=== PATIENT | female | born 1950 | race Caucasian/White ===

== ENCOUNTER 2020-10-03 09:38 | Inpatient (IN) | payer OTHER, BC ==
[2020-10-03 10:10] LABS: EOS % 2.8 % (0-4.5); HEMATOCRIT 39.7 % (32.4-45.2); HEMOGLOBIN 13.9 GM/dL (10.7-15.3); LYMPH % 37.4 % (8-40); MCHC 35.1 g/dl (32.0-36.0); MEAN CELL VOLUME 91.3 fl (80-96); MEAN PLT VOLUME 7.5 fl (7.5-11.1); MONO % 7.2 % (3.8-10.2); NEUT % 51.6 % (42.8-82.8); PLATELET COUNT 286 10^3/uL (134-434); RBC 4.35 M/mm3 (3.60-5.2); RDW 13.8 % (11.6-15.6); WHITE BLOOD COUNT 5.4 K/mm3 (4.0-10.0)
[2020-10-03 10:27] LABS: CHLORIDE 111 mmol/L (98-107); SODIUM 136 mmol/L (136-145)
[2020-10-03 10:30] LABS: ANION GAP 11 MMOL/L (8-16); BLOOD UREA NITROGEN 22.7 mg/dL (7-18); CALCIUM 9.2 mg/dL (8.5-10.1); CO2 15 mmol/L (21-32); MAGNESIUM 2.1 mg/dL (1.8-2.4)
[2020-10-03 10:31] LABS: GLUCOSE,RANDOM 140 mg/dL (74-106)
[2020-10-03 10:33] LABS: SGPT/ALT 58 U/L (13-61)
[2020-10-03 10:34] LABS: CREATININE 0.8 mg/dL (0.55-1.3); PHOSPHOROUS 4.2 mg/dL (2.5-4.9); SGOT/AST 28 U/L (15-37)
[2020-10-03 10:35] LABS: BILIRUBIN,TOTAL 0.4 mg/dL (0.2-1); TOT PROT 7.4 g/dl (6.4-8.2)
[2020-10-03 10:36] LABS: ALK PHOS 120 U/L (45-117)
[2020-10-03 10:42] LABS: LACTIC ACID 3.7 mmol/L (0.4-2.0)
[2020-10-03 11:58] VITALS: BMI 27.4
[2020-10-03] MEDS ORDERED: SODIUM CHLORIDE 1,000 ML IV STA (12:17)
[2020-10-03] MEDS ORDERED: ACETAMINOPHEN 325 MG TABLET (FP) PO ONE ×2 (15:27→20:07)
[2020-10-03] MEDS ORDERED: ACETAMINOPHEN 325 MG TABLET (FP) ONE ×2 (15:37→20:08)
[2020-10-03 17:21] LABS: URINE APPEARANCE CLEAR; URINE BILIRUBIN NEGATIVE (NEGATIVE); URINE COLOR YELLOW; URINE GLUCOSE (UA) NEGATIVE (NEGATIVE); URINE KETONE NEGATIVE (NEGATIVE); URINE LEUK ESTERASE NEGATIVE (NEGATIVE); URINE NITRITE NEGATIVE (NEGATIVE); URINE PROTEIN NEGATIVE (NEGATIVE); URINE UROBILINOGEN 0.2 mg/dL (0.2-1.0)
[2020-10-04] MEDS ORDERED: ACETAMINOPHEN 325 MG TABLET (FP) PO PRN ×2 (01:28→07:50)
[2020-10-04] MEDS ORDERED: ACETAMINOPHEN 500 MG TABLET (FP) PO ONE (03:00)
[2020-10-04] MEDS ORDERED: ACETAMINOPHEN 500 MG TABLET (FP) ONE (03:05)
[2020-10-04 06:40] LABS: BASO % 0.6 % (0-2.0); EOS % 2.8 % (0-4.5); HEMATOCRIT 37.5 % (32.4-45.2); HEMOGLOBIN 12.9 GM/dL (10.7-15.3); LYMPH % 28.7 % (8-40); MCH 31.6 pg (25.7-33.7); MCHC 34.5 g/dl (32.0-36.0); MEAN CELL VOLUME 91.6 fl (80-96); MEAN PLT VOLUME 7.5 fl (7.5-11.1); MONO % 7.6 % (3.8-10.2); NEUT % 60.3 % (42.8-82.8); PLATELET COUNT 213 10^3/uL (134-434); RBC 4.09 M/mm3 (3.60-5.2); RDW 13.8 % (11.6-15.6); WHITE BLOOD COUNT 4.4 K/mm3 (4.0-10.0)
[2020-10-04 07:05] LABS: ALBUMIN 3.6 g/dl (3.4-5.0); CALCIUM 9.2 mg/dL (8.5-10.1); MAGNESIUM 2.1 mg/dL (1.8-2.4)
[2020-10-04 07:06] LABS: BLOOD UREA NITROGEN 16.4 mg/dL (7-18)
[2020-10-04 07:08] LABS: CREATININE 0.6 mg/dL (0.55-1.3)
[2020-10-04 07:09] LABS: PHOSPHOROUS 3.9 mg/dL (2.5-4.9)
[2020-10-04 07:10] LABS: TOT PROT 6.6 g/dl (6.4-8.2)
[2020-10-04 07:11] LABS: BILIRUBIN,TOTAL 0.4 mg/dL (0.2-1)
[2020-10-04] MEDS ORDERED: ACETAMINOPHEN 325 MG TABLET (FP) ONE ×2 (07:28→07:29)
[2020-10-04 07:49] VITALS: TEMP 98.1
[2020-10-04] MEDS ORDERED: ONDANSETRON 4 MG/2 ML VIAL IVPUSH ONE (07:51)
[2020-10-04] MEDS ORDERED: ATENOLOL 50 MG TABLET (FP) PO SCH (10:00)
[2020-10-04] MEDS ORDERED: ENOXAPARIN NA (PORCINE) 40 MG/0.4 ML DISP.SYRIN SQ SCH (10:00)
[2020-10-04] MEDS ORDERED: ATENOLOL 25 MG TABLET (FP) ONE (11:34)
[2020-10-04] MEDS ORDERED: ENOXAPARIN NA (PORCINE) 40 MG/0.4 ML DISP.SYRIN SQ ONE (11:35)
[2020-10-04 12:51] VITALS: BP 127/71; PULSE 78
== END 2020-10-04 14:29 | disposition home or self-care (01) | DRG 312 ==
LOC: JER 09:38 → JERBED 14:09 → OBSVTOIN 14:55
PROVIDERS: ADMIT Internal Medicine; ATTEND Internal Medicine
DX: R55 Syncope and collapse (principal); E87.2 Acidosis; G43.909 Migraine, unspecified, not intractable, without status migrainosus; I10 Essential (primary) hypertension; E78.00 Pure hypercholesterolemia, unspecified; E05.90 Thyrotoxicosis, unspecified without thyrotoxic crisis or storm; M54.12 Radiculopathy, cervical region; J44.9 Chronic obstructive pulmonary disease, unspecified; E86.0 Dehydration
CPT/HCPCS: 36415; 70450-TC; 71045-TC-FY; 71250-TC; 72125-TC; 78014-TC; 80053; 80061; 81003; 82550; 82962; 83605; 83735; 84100; 84436; 84443; 84484; 85025; 93005; 93010; 99285-25; A9516; C9803; G0378; U0003; U0005

== ENCOUNTER 2020-10-10 10:31 | Inpatient (IN) | payer OTHER, BC ==
[2020-10-10 13:18] LABS: INR 1.08 (0.82-1.09)
[2020-10-10 13:26] LABS: ACTIVATED PTT 25.8 SECONDS (25.2-36.5)
[2020-10-10 13:27] LABS: BASO % 4.1 % (0-2.0); EOS % 2.7 % (0-4.5); HEMATOCRIT 39.4 % (32.4-45.2); HEMOGLOBIN 13.1 GM/dl (10.7-15.3); LYMPH % 28.8 % (8-40); MCH 30.7 pg (25.7-33.7); MCHC 33.1 g/dl (32.0-36.0); MEAN CELL VOLUME 92.8 fl (80-96); MEAN PLT VOLUME 7.9 fl (7.5-11.1); MONO % 4.7 % (3.8-10.2); NEUT % 59.7 % (42.8-82.8); PLATELET COUNT 181 10^3/uL (134-434); RBC 4.25 M/mm3 (3.60-5.2); RDW 13.6 % (11.6-15.6); WHITE BLOOD COUNT 3.7 K/mm3 (4.0-10.8)
[2020-10-10 13:28] LABS: ALK PHOS 96 U/L (45-117); ANION GAP 8 MMOL/L (8-16); BILIRUBIN,TOTAL 0.6 mg/dl (0.2-1); CALCIUM 9.4 mg/dl (8.5-10); CHLORIDE 111 mmol/L (98-107); CO2 18 mmol/L (21-32); CREATININE 0.6 mg/dl (0.55-1.3); GLUCOSE,RANDOM 91 mg/dl (74-106); MAGNESIUM 1.8 mg/dL (1.8-2.4); SGOT/AST 46 U/L (15-37); SGPT/ALT 129 U/L (13-61); SODIUM 137 mmol/L (136-145); TOT PROT 6.8 g/dl (6.4-8.2)
[2020-10-10 14:06] LABS: N-TERMINAL BNP 5472.4 pg/ml (5-125)
[2020-10-10] MEDS ORDERED: MAGNESIUM SULF 50% (8.12 MEQ/2 ML-1 GM VIAL) IVPB ONE (15:34)
[2020-10-10] MEDS ORDERED: MAGNESIUM 1GM/D5W - 1 GM/100 ML IVPB IVPB ONE (16:39)
[2020-10-10 18:16] VITALS: BMI 27.3
[2020-10-10] MEDS: METHIMAZOLE 5 MG TABLET PO SCH (21:16)
[2020-10-11 08:10] LABS: BASO % 1.3 % (0-2.0); EOS % 4.6 % (0-4.5); HEMATOCRIT 38.7 % (32.4-45.2); HEMOGLOBIN 12.9 GM/dl (10.7-15.3); LYMPH % 30.5 % (8-40); MCH 30.5 pg (25.7-33.7); MCHC 33.4 g/dl (32.0-36.0); MEAN CELL VOLUME 91.4 fl (80-96); MEAN PLT VOLUME 7.7 fl (7.5-11.1); MONO % 10.4 % (3.8-10.2); NEUT % 53.2 % (42.8-82.8); PLATELET COUNT 180 10^3/uL (134-434); RBC 4.24 M/mm3 (3.60-5.2); RDW 13.2 % (11.6-15.6); WHITE BLOOD COUNT 3.3 K/mm3 (4.0-10.8)
[2020-10-11 08:19] LABS: ALBUMIN 3.8 g/dl (3.4-5.0); BILIRUBIN,DIRECT 0.1 mg/dL (0.0-0.2); BILIRUBIN,TOTAL 0.7 mg/dl (0.2-1); CALCIUM 9.3 mg/dl (8.5-10); CREATININE 0.6 mg/dl (0.55-1.3); TOT PROT 6.3 g/dl (6.4-8.2)
[2020-10-11] MEDS: ATENOLOL 50 MG TABLET (FP) PO SCH (12:36)
[2020-10-11] MEDS: ROSUVASTATIN CA 5 MG TABLET (FP) PO SCH (12:37)
[2020-10-11] MEDS: METHIMAZOLE 5 MG TABLET PO SCH ×2 (12:37→21:26)
[2020-10-11] MEDS: ENOXAPARIN NA (PORCINE) 40 MG/0.4 ML DISP.SYRIN SQ SCH (12:37)
[2020-10-11] MEDS ORDERED: FUROSEMIDE 40 MG/4 ML INJECTABLE VIAL IVPUSH ONE (14:30)
[2020-10-12 09:50] VITALS: BP 104/80; PULSE 70; TEMP 97.8
[2020-10-12] MEDS: ENOXAPARIN NA (PORCINE) 40 MG/0.4 ML DISP.SYRIN SQ SCH (09:51)
[2020-10-12] MEDS: METHIMAZOLE 5 MG TABLET PO SCH (09:51)
[2020-10-12] MEDS: ATENOLOL 50 MG TABLET (FP) PO SCH (09:51)
[2020-10-12] MEDS: ROSUVASTATIN CA 5 MG TABLET (FP) PO SCH (09:51)
== END 2020-10-12 12:54 | disposition short-term general hospital (02) | DRG 644 ==
LOC: FER 10:31 → INTOOBSV 14:19 → FM/S 14:19 → OBSVTOIN 10-11 21:20
PROVIDERS: ADMIT Internal Medicine; ATTEND Nurse Practitioner Acute Care
DX: E05.90 Thyrotoxicosis, unspecified without thyrotoxic crisis or storm (principal); I50.20 Unspecified systolic (congestive) heart failure; I27.20 Pulmonary hypertension, unspecified; R55 Syncope and collapse; J44.9 Chronic obstructive pulmonary disease, unspecified; I10 Essential (primary) hypertension; E78.5 Hyperlipidemia, unspecified
CPT/HCPCS: 36415; 70450-TC; 70551-TC; 71046-TC-FY; 71275-TC; 72125-TC; 80048; 80053; 80076; 81003; 82550; 83036; 83735; 83880; 84439; 84443; 84481; 84484; 85025; 85610; 85730; 93005; 93306-TC; 93880-TC; 99285-25; C9803; G0378; Q9967; U0003; U0005

== ENCOUNTER 2020-12-25 09:41 | Inpatient (IN) | payer OTHER, BC ==
[2020-12-25 10:07] VITALS: BMI 26.6
[2020-12-25 10:18] LABS: BASO % 2.5 % (0-2.0); EOS % 2.5 % (0-4.5); HEMATOCRIT 23.6 % (32.4-45.2); HEMOGLOBIN 7.8 GM/dl (10.7-15.3); LYMPH % 16.1 % (8-40); MCHC 33.2 g/dl (32.0-36.0); MEAN CELL VOLUME 96.2 fl (80-96); MEAN PLT VOLUME 6.6 fl (7.5-11.1); MONO % 3.6 % (3.8-10.2); NEUT % 75.3 % (42.8-82.8); PLATELET COUNT 321 10^3/uL (134-434); RBC 2.45 M/mm3 (3.60-5.2); RDW 15.7 % (11.6-15.6)
[2020-12-25 10:28] LABS: ACTIVATED PTT 30.9 SECONDS (25.2-36.5)
[2020-12-25 10:31] LABS: ALBUMIN 3.5 g/dl (3.4-5.0); ALK PHOS 75 U/L (45-117); ANION GAP 9 MMOL/L (8-16); BILIRUBIN,TOTAL 0.8 mg/dl (0.2-1); CHLORIDE 111 mmol/L (98-107); CO2 16 mmol/L (21-32); CREATININE 0.7 mg/dl (0.55-1.3); GLUCOSE,RANDOM 118 mg/dl (74-106); SGOT/AST 26 U/L (15-37); SGPT/ALT 18 U/L (13-61); SODIUM 136 mmol/L (136-145)
[2020-12-25 10:33] LABS: INR 2.06 (0.82-1.09); PROTHROMBIN TIME (PATIENT) 22.9 SEC (10.2-13.0)
[2020-12-25] MEDS ORDERED: SODIUM CHLORIDE 0.9% 500 ML INFUS.BAG IV ONE ×2 (11:07→22:12)
[2020-12-25 12:01] LABS: N-TERMINAL BNP 3704.8 pg/ml (5-125)
[2020-12-25] MEDS ORDERED: DEXAMETHASONE SOD PHOSPHATE 10 MG/1 ML VIAL IVPUSH ONE (13:39)
[2020-12-25] MEDS ORDERED: DEXAMETHASONE SOD PHOSPHATE 10 MG/1 ML VIAL ONE (14:05)
[2020-12-25] MEDS ORDERED: FUROSEMIDE 40 MG/4 ML INJECTABLE VIAL IVPUSH ONE (16:14)
[2020-12-25 18:33] LABS: ARTERIAL BLD GAS O2 SATURATION 96.7 % (95-98); ARTERIAL BLOOD GAS BASE EXCESS -9.5 mmol/L (-2-2); ARTERIAL BLOOD GAS PO2 89.1 mmHg (80-100); ARTERIAL BLOOD GAS pH 7.362 (7.350-7.450)
[2020-12-25 18:35] LABS: ALLENS TEST POSITIVE
[2020-12-25] MEDS ORDERED: ATENOLOL 50 MG TABLET (FP) PO SCH (22:00)
[2020-12-25] MEDS ORDERED: RIOCIGUAT 1 MG PO SCH (22:00)
[2020-12-25] MEDS ORDERED: SODIUM CHLORIDE 500 ML IV STA (22:13)
[2020-12-25] MEDS ORDERED: SODIUM CHLORIDE 1,000 ML IV SCH ×2 (22:15→23:45)
[2020-12-25] MEDS: MUPIROCIN 2% TOPICAL OINTMENT FOR DECOLONIZATION NS SCH (22:45)
[2020-12-25] MEDS: CHLORHEXIDINE GLUCONATE 4% CLEANSER FOR DECOLONIZATION TP SCH (22:46)
[2020-12-25] MEDS: METHIMAZOLE 5 MG TABLET PO SCH (22:57)
[2020-12-25] MEDS ORDERED: guaiFENesin 200 MG/10 ML 10 ML UNIT-DOSE CUPS PO ONE (23:56)
[2020-12-26] MEDS ORDERED: SODIUM CHLORIDE 500 ML IV STA (00:08)
[2020-12-26 06:14] LABS: BASO % 0.6 % (0-2.0); EOS % 0.1 % (0-4.5); HEMATOCRIT 22.3 % (32.4-45.2); HEMOGLOBIN 7.7 GM/dL (10.7-15.3); MCH 32.8 pg (25.7-33.7); MCHC 34.4 g/dl (32.0-36.0); MEAN CELL VOLUME 95.4 fl (80-96); MEAN PLT VOLUME 7.3 fl (7.5-11.1); MONO % 4.5 % (3.8-10.2); NEUT % 82.8 % (42.8-82.8); PLATELET COUNT 260 10^3/uL (134-434); RBC 2.34 M/mm3 (3.60-5.2); RDW 16.8 % (11.6-15.6); WHITE BLOOD COUNT 5.7 K/mm3 (4.0-10.0)
[2020-12-26 07:02] LABS: BASO % 0.2 % (0-2.0); EOS % 0.1 % (0-4.5); HEMATOCRIT 22.6 % (32.4-45.2); HEMOGLOBIN 7.9 GM/dL (10.7-15.3); LYMPH % 12.9 % (8-40); MCH 32.9 pg (25.7-33.7); MCHC 34.7 g/dl (32.0-36.0); MEAN CELL VOLUME 94.7 fl (80-96); MEAN PLT VOLUME 7.1 fl (7.5-11.1); MONO % 4.6 % (3.8-10.2); NEUT % 82.2 % (42.8-82.8); PLATELET COUNT 249 10^3/uL (134-434); RBC 2.39 M/mm3 (3.60-5.2); RDW 17.1 % (11.6-15.6); WHITE BLOOD COUNT 6.1 K/mm3 (4.0-10.0)
[2020-12-26 07:18] LABS: PHOSPHOROUS 3.9 mg/dL (2.5-4.9)
[2020-12-26 08:28] LABS: ALBUMIN 2.9 g/dl (3.4-5.0); BILIRUBIN,TOTAL 0.8 mg/dL (0.2-1); BLOOD UREA NITROGEN 19.4 mg/dL (7-18); CALCIUM 8.1 mg/dL (8.5-10.1); CREATININE 0.6 mg/dL (0.55-1.3); MAGNESIUM 2.2 mg/dL (1.8-2.4); TOT PROT 5.5 g/dl (6.4-8.2)
[2020-12-26 09:30] LABS: ACTIVATED PTT 26.3 SECONDS (25.2-36.5); INR 1.31 (0.83-1.09); PROTHROMBIN TIME (PATIENT) 15.4 SEC (9.7-13.0)
[2020-12-26] MEDS ORDERED: PT OWN MED DRAWER 7, Y5N ONE ×2 (09:32→10:04)
[2020-12-26] MEDS: ACETAMINOPHEN/CAFFEINE/BUTALBITAL 1 TAB PO PRN ×3 (09:39→21:55)
[2020-12-26] MEDS: PANTOPRAZOLE SODIUM 40 MG VIAL IVPUSH SCH ×2 (09:39→21:51)
[2020-12-26] MEDS: POLYETHYLENE GLYCOL (HEALTHYLAX) 3350 17 GM PACKET PO SCH (09:40)
[2020-12-26] MEDS: SPIRONOLACTONE 25 MG TABLET PO SCH (09:40)
[2020-12-26] MEDS: MUPIROCIN 2% TOPICAL OINTMENT FOR DECOLONIZATION NS SCH ×2 (09:40→21:51)
[2020-12-26] MEDS ORDERED: MACITENTAN 10 MG PO SCH (10:00)
[2020-12-26] MEDS: METHIMAZOLE 5 MG TABLET PO SCH ×2 (11:26→21:51)
[2020-12-26] MEDS: DOPAMINE 400 MG/D5W - 400,000 MCG/250 ML INFUS.BAG IVPB SCH (11:30)
[2020-12-26] MEDS ORDERED: FUROSEMIDE 40 MG/4 ML INJECTABLE VIAL IVPUSH ONE (14:45)
[2020-12-26 18:29] LABS: URINE APPEARANCE CLEAR; URINE BILIRUBIN NEGATIVE (NEGATIVE); URINE COLOR YELLOW; URINE GLUCOSE (UA) NEGATIVE (NEGATIVE); URINE KETONE NEGATIVE (NEGATIVE); URINE LEUK ESTERASE NEGATIVE (NEGATIVE); URINE NITRITE NEGATIVE (NEGATIVE); URINE PROTEIN NEGATIVE (NEGATIVE); URINE UROBILINOGEN 0.2 mg/dL (0.2-1.0)
[2020-12-26] MEDS: ROSUVASTATIN CA 5 MG TABLET (FP) PO SCH (21:51)
[2020-12-26] MEDS: CHLORHEXIDINE GLUCONATE 4% CLEANSER FOR DECOLONIZATION TP SCH (21:51)
[2020-12-27] MEDS: DOPAMINE 400 MG/D5W - 400,000 MCG/250 ML INFUS.BAG IVPB SCH ×2 (01:08→19:24)
[2020-12-27] MEDS ORDERED: ACETAMINOPHEN 325 MG TABLET (FP) PO ONE ×2 (05:42)
[2020-12-27] MEDS ORDERED: guaiFENesin/CODEINE 10 ML UNIT-DOSE CUPS PO ONE ×2 (05:44→15:01)
[2020-12-27 07:03] LABS: BASO % 0.2 % (0-2.0); EOS % 1.7 % (0-4.5); HEMATOCRIT 25.8 % (32.4-45.2); HEMOGLOBIN 8.9 GM/dL (10.7-15.3); LYMPH % 10.6 % (8-40); MCH 32.3 pg (25.7-33.7); MCHC 34.7 g/dl (32.0-36.0); MEAN CELL VOLUME 93.3 fl (80-96); MEAN PLT VOLUME 6.9 fl (7.5-11.1); MONO % 3.9 % (3.8-10.2); NEUT % 83.6 % (42.8-82.8); PLATELET COUNT 298 10^3/uL (134-434); RBC 2.76 M/mm3 (3.60-5.2); RDW 16.5 % (11.6-15.6); WHITE BLOOD COUNT 7.1 K/mm3 (4.0-10.0)
[2020-12-27 07:23] LABS: CALCIUM 8.6 mg/dL (8.5-10.1)
[2020-12-27 07:24] LABS: ALBUMIN 3.2 g/dl (3.4-5.0); BLOOD UREA NITROGEN 14.7 mg/dL (7-18); MAGNESIUM 2.2 mg/dL (1.8-2.4)
[2020-12-27 07:27] LABS: CREATININE 0.6 mg/dL (0.55-1.3); PHOSPHOROUS 3.2 mg/dL (2.5-4.9)
[2020-12-27 07:29] LABS: TOT PROT 6.2 g/dl (6.4-8.2)
[2020-12-27] MEDS ORDERED: PT OWN MED DRAWER 7, Y5N ONE ×3 (10:38→21:41)
[2020-12-27] MEDS: MUPIROCIN 2% TOPICAL OINTMENT FOR DECOLONIZATION NS SCH ×2 (10:44→21:45)
[2020-12-27] MEDS: POLYETHYLENE GLYCOL (HEALTHYLAX) 3350 17 GM PACKET PO SCH (10:44)
[2020-12-27] MEDS: PANTOPRAZOLE SODIUM 40 MG VIAL IVPUSH SCH ×2 (10:44→21:44)
[2020-12-27] MEDS: APIXABAN 5 MG TABLET PO SCH ×2 (10:44→21:44)
[2020-12-27] MEDS: SPIRONOLACTONE 25 MG TABLET PO SCH (10:44)
[2020-12-27] MEDS: METHIMAZOLE 5 MG TABLET PO SCH ×2 (12:00→21:45)
[2020-12-27] MEDS ORDERED: guaiFENesin 200 MG/10 ML 10 ML UNIT-DOSE CUPS PO ONE (20:17)
[2020-12-27] MEDS: ROSUVASTATIN CA 5 MG TABLET (FP) PO SCH (21:44)
[2020-12-27] MEDS: CHLORHEXIDINE GLUCONATE 4% CLEANSER FOR DECOLONIZATION TP SCH (21:44)
[2020-12-28] MEDS: guaiFENesin 200 MG/10 ML 10 ML UNIT-DOSE CUPS PO PRN ×3 (01:28→17:24)
[2020-12-28] MEDS: ACETAMINOPHEN 325 MG TABLET (FP) PO PRN ×2 (01:28→10:08)
[2020-12-28] MEDS: DOPAMINE 400 MG/D5W - 400,000 MCG/250 ML INFUS.BAG IVPB SCH ×4 (01:39→23:30)
[2020-12-28] MEDS: FUROSEMIDE 40 MG/4 ML INJECTABLE VIAL IVPUSH SCH ×2 (05:48→14:42)
[2020-12-28] MEDS: ACETAMINOPHEN/CAFFEINE/BUTALBITAL 1 TAB PO PRN ×2 (06:48→21:01)
[2020-12-28 07:00] LABS: BASO % 0.3 % (0-2.0); EOS % 2.2 % (0-4.5); HEMATOCRIT 26.5 % (32.4-45.2); HEMOGLOBIN 9.2 GM/dL (10.7-15.3); LYMPH % 11.3 % (8-40); MCH 32.4 pg (25.7-33.7); MCHC 34.9 g/dl (32.0-36.0); MEAN PLT VOLUME 6.8 fl (7.5-11.1); MONO % 2.9 % (3.8-10.2); NEUT % 83.3 % (42.8-82.8); PLATELET COUNT 304 10^3/uL (134-434); RBC 2.85 M/mm3 (3.60-5.2); RDW 16.8 % (11.6-15.6); WHITE BLOOD COUNT 7.1 K/mm3 (4.0-10.0)
[2020-12-28 07:28] LABS: BLOOD UREA NITROGEN 11.6 mg/dL (7-18); CALCIUM 8.5 mg/dL (8.5-10.1)
[2020-12-28 07:29] LABS: ALBUMIN 3.2 g/dl (3.4-5.0); MAGNESIUM 2.3 mg/dL (1.8-2.4)
[2020-12-28 07:31] LABS: CREATININE 0.6 mg/dL (0.55-1.3); PHOSPHOROUS 3.3 mg/dL (2.5-4.9)
[2020-12-28 07:32] LABS: BILIRUBIN,TOTAL 1.2 mg/dL (0.2-1); TOT PROT 6.5 g/dl (6.4-8.2)
[2020-12-28] MEDS ORDERED: PT OWN MED DRAWER 7, Y5N ONE ×3 (09:59→20:57)
[2020-12-28] MEDS: PANTOPRAZOLE SODIUM 40 MG VIAL IVPUSH SCH ×2 (10:04→21:00)
[2020-12-28] MEDS: SPIRONOLACTONE 25 MG TABLET PO SCH (10:04)
[2020-12-28] MEDS: APIXABAN 5 MG TABLET PO SCH ×2 (10:04→21:00)
[2020-12-28] MEDS: POLYETHYLENE GLYCOL (HEALTHYLAX) 3350 17 GM PACKET PO SCH (10:13)
[2020-12-28] MEDS: KCL 10 MEQ IVPB 10 MEQ/100 ML INFUS.BAG IVPB SCH ×2 (10:28→12:42)
[2020-12-28] MEDS ORDERED: POTASSIUM CHLORIDE ORAL LIQUID 20 MEQ/15 ML PO ONE (10:45)
[2020-12-28] MEDS: METHIMAZOLE 5 MG TABLET PO SCH ×2 (11:42→21:00)
[2020-12-28] MEDS: MUPIROCIN 2% TOPICAL OINTMENT FOR DECOLONIZATION NS SCH ×2 (11:43→22:12)
[2020-12-28 22:06] VITALS: TEMP 99.7
[2020-12-28] MEDS: CHLORHEXIDINE GLUCONATE 4% CLEANSER FOR DECOLONIZATION TP SCH (22:08)
[2020-12-28] MEDS: ROSUVASTATIN CA 5 MG TABLET (FP) PO SCH (22:08)
[2020-12-28 23:30] VITALS: BP 112/60; PULSE 95
== END 2020-12-28 23:35 | disposition short-term general hospital (02) | DRG 314 ==
LOC: FER 09:41 → JICU 13:30
PROVIDERS: ADMIT Internal Medicine; ATTEND Internal Medicine Pulmonary Disease
PROC: 30233N1 Transfusion of Nonautologous Red Blood Cells into Peripheral Vein, Percutaneous Approach (ICD-10-PCS; principal; 2020-12-25)
DX: I27.20 Pulmonary hypertension, unspecified (principal); J96.01 Acute respiratory failure with hypoxia; I50.22 Chronic systolic (congestive) heart failure; E87.3 Alkalosis; K92.2 Gastrointestinal hemorrhage, unspecified; I11.0 Hypertensive heart disease with heart failure; E03.9 Hypothyroidism, unspecified; G43.909 Migraine, unspecified, not intractable, without status migrainosus; E05.90 Thyrotoxicosis, unspecified without thyrotoxic crisis or storm; E78.5 Hyperlipidemia, unspecified; I10 Essential (primary) hypertension; I50.810 Right heart failure, unspecified; I27.24 Chronic thromboembolic pulmonary hypertension; D64.9 Anemia, unspecified
CPT/HCPCS: 36415; 36430; 36511; 36600; 71045-TC-FY; 71275-TC; 80053; 81003; 82272; 82550; 82728; 82803; 83540; 83550; 83615; 83735; 83880; 84100; 84439; 84443; 84466; 84484; 85025; 85045; 85379; 85610; 85730; 86140; 86850; 86900; 86901; 86922; 93005; 93010; 99285-25; C9803; J1100; P9038; P9058; Q9967; U0003; U0005

== ENCOUNTER 2021-01-21 13:46 | Inpatient (IN) | payer OTHER, BC ==
[2021-01-21] MEDS ORDERED: ACETAMINOPHEN INJECTION 100 ML IVPB ONE ×2 (15:01→22:40)
[2021-01-21] MEDS: ACETAMINOPHEN 1000 MG/100 ML VIAL IVPB ONE ×2 (15:03→15:09)
[2021-01-21] MEDS ORDERED: ACETAMINOPHEN/CAFFEINE/BUTALBITAL 1 TAB PO ONE (15:04)
[2021-01-21] MEDS ORDERED: ACETAMINOPHEN/CAFFEINE/BUTALBITAL 1 TAB ONE (15:05)
[2021-01-21 15:12] LABS: BASO % 0.4 % (0-2.0); EOS % 2.5 % (0-4.5); HEMATOCRIT 24.8 % (32.4-45.2); HEMOGLOBIN 8.4 GM/dL (10.7-15.3); LYMPH % 18.6 % (8-40); MCH 34.1 pg (25.7-33.7); MCHC 33.7 g/dl (32.0-36.0); MEAN CELL VOLUME 101.2 fl (80-96); MEAN PLT VOLUME 6.7 fl (7.5-11.1); MONO % 2.4 % (3.8-10.2); NEUT % 76.1 % (42.8-82.8); PLATELET COUNT 219 10^3/uL (134-434); RBC 2.45 M/mm3 (3.60-5.2); RDW 18.9 % (11.6-15.6); VENOUS BASE EXCESS -6.1 mmol/L (-2-2); VENOUS O2 SATURATION 69.1 % (70-80); VENOUS PH 7.394 (7.310-7.410); WHITE BLOOD COUNT 5.9 K/mm3 (4.0-10.0)
[2021-01-21 15:34] LABS: CHLORIDE 113 mmol/L (98-107); SODIUM 142 mmol/L (136-145)
[2021-01-21 15:36] LABS: CALCIUM 8.6 mg/dL (8.5-10.1)
[2021-01-21 15:37] LABS: ALBUMIN 3.4 g/dl (3.4-5.0); ANION GAP 10 MMOL/L (8-16); BLOOD UREA NITROGEN 17.4 mg/dL (7-18); CO2 19 mmol/L (21-32); GLUCOSE,RANDOM 89 mg/dL (74-106)
[2021-01-21 15:40] LABS: CREATININE 0.6 mg/dL (0.55-1.3); SGOT/AST 27 U/L (15-37); SGPT/ALT 28 U/L (13-61)
[2021-01-21 15:41] LABS: BILIRUBIN,TOTAL 0.6 mg/dL (0.2-1)
[2021-01-21 15:42] LABS: TOT PROT 6.6 g/dl (6.4-8.2)
[2021-01-21 15:43] LABS: ALK PHOS 73 U/L (45-117)
[2021-01-21 15:45] LABS: N-TERMINAL BNP 543.5 pg/ml (5-125)
[2021-01-21] MEDS ORDERED: guaiFENesin 200 MG/10 ML 10 ML UNIT-DOSE CUPS PO ONE (18:02)
[2021-01-21] MEDS ORDERED: guaiFENesin 200 MG/10 ML 10 ML UNIT-DOSE CUPS ONE (18:18)
[2021-01-21] MEDS ORDERED: POTASSIUM CHLORIDE TABS 20 MEQ TABLET.ER (FP) PO ONE (19:54)
[2021-01-21] MEDS ORDERED: guaiFENesin/D-M SUGAR-FREE/ACLHOL-FREE 118 ML BOTTLE PO ONE (20:22)
[2021-01-21] MEDS ORDERED: ACETAMINOPHEN 1000 MG/100 ML VIAL IVPB ONE (22:10)
[2021-01-21] MEDS ORDERED: APIXABAN 5 MG TABLET PO SCH (23:30)
[2021-01-22] MEDS ORDERED: ALBUTEROL SO4 HFA INHALER IH PRN ×2 (00:16→17:31)
[2021-01-22 00:24] LABS: ARTERIAL BLD GAS O2 SATURATION 98.2 % (95-98); ARTERIAL BLOOD GAS PO2 107.2 mmHg (80-100); ARTERIAL BLOOD GAS pH 7.447 (7.350-7.450)
[2021-01-22 00:35] LABS: ALLENS TEST POSITIVE
[2021-01-22 00:36] LABS: PT'S TEMP 37
[2021-01-22] MEDS ORDERED: APIXABAN 5 MG TABLET ONE ×2 (00:37→10:19)
[2021-01-22] MEDS ORDERED: DEXAMETHASONE SOD PHOSPHATE 4 MG/1 ML VIAL ONE (00:38)
[2021-01-22] MEDS ORDERED: CEFTRIAXONE 1 GM/50 ML BAG ONE ×2 (00:38→10:20)
[2021-01-22] MEDS ORDERED: DOXYCYCLINE HYCLATE 100 MG VIAL ONE ×3 (00:38→21:59)
[2021-01-22] MEDS: DOXYCYCLINE INJECTION 100 MG in DEXTROSE 5%-WATER 100 ML IVPB SCH ×3 (00:55→22:00)
[2021-01-22] MEDS: CEFTRIAXONE 1 GM in DEXTROSE 5%-WATER - 50 ML IVPB SCH ×2 (00:55→10:48)
[2021-01-22] MEDS: DEXAMETHASONE SOD PHOSPHATE 20 MG/5 ML VIAL IVPB SCH ×2 (00:55→10:48)
[2021-01-22] MEDS ORDERED: REMDESIVIR 200 MG in SODIUM CHLORIDE 210 ML IVPB ONE (02:00)
[2021-01-22] MEDS ORDERED: MELATONIN 5 MG TABLETS PO PRN ×2 (03:01→17:31)
[2021-01-22] MEDS ORDERED: RIOCIGUAT 1 MG PO SCH ×2 (06:00→22:00)
[2021-01-22 08:12] LABS: HEMATOCRIT 20.5 % (32.4-45.2); MCH 33.7 pg (25.7-33.7); MCHC 33.9 g/dl (32.0-36.0); MEAN CELL VOLUME 99.6 fl (80-96); PLATELET COUNT 197 10^3/uL (134-434); RBC 2.06 M/mm3 (3.60-5.2); RDW 18.2 % (11.6-15.6); WHITE BLOOD COUNT 5.2 K/mm3 (4.0-10.0)
[2021-01-22 08:25] LABS: HEMOGLOBIN 6.9 GM/dL (10.7-15.3)
[2021-01-22 08:26] LABS: BLOOD UREA NITROGEN 15.4 mg/dL (7-18); CALCIUM 8.6 mg/dL (8.5-10.1)
[2021-01-22 08:27] LABS: MAGNESIUM 2.4 mg/dL (1.8-2.4)
[2021-01-22 08:28] LABS: PHOSPHOROUS 3.2 mg/dL (2.5-4.9)
[2021-01-22 08:29] LABS: BILIRUBIN,TOTAL 0.7 mg/dL (0.2-1); TOT PROT 5.8 g/dl (6.4-8.2)
[2021-01-22 08:30] LABS: CREATININE 0.6 mg/dL (0.55-1.3)
[2021-01-22] MEDS ORDERED: ACETAMINOPHEN/CAFFEINE/BUTALBITAL 1 TAB PO ONE (09:15)
[2021-01-22 09:53] LABS: ANISOCYTOSIS 1+; MACROCYTOSIS 1+
[2021-01-22] MEDS ORDERED: FAMOTIDINE 20 MG/50 ML IVPB 20 MG/50 ML MG IVPB SCH (10:00)
[2021-01-22] MEDS ORDERED: FAMOTIDINE/PF 20 MG/2 ML VIAL IVPB SCH (10:00)
[2021-01-22] MEDS ORDERED: METHIMAZOLE 5 MG TABLET PO SCH ×2 (10:00→22:00)
[2021-01-22] MEDS ORDERED: ZINC SULFATE 220 MG CAPSULE (FP) PO SCH (10:00)
[2021-01-22] MEDS ORDERED: ASCORBIC ACID 500 MG TABLET (FP) PO SCH (10:00)
[2021-01-22] MEDS ORDERED: SPIRONOLACTONE 25 MG TABLET PO SCH (10:00)
[2021-01-22] MEDS ORDERED: MACITENTAN 10 MG PO SCH (10:00)
[2021-01-22] MEDS ORDERED: DEXAMETHASONE SOD PHOSPHATE 10 MG/1 ML VIAL ONE (10:19)
[2021-01-22] MEDS ORDERED: ZINC SULFATE 220 MG CAPSULE (FP) ONE (10:19)
[2021-01-22] MEDS ORDERED: ACETAMINOPHEN/CAFFEINE/BUTALBITAL 1 TAB ONE (10:19)
[2021-01-22] MEDS ORDERED: ASCORBIC ACID 500 MG TABLET (FP) ONE (10:19)
[2021-01-22] MEDS ORDERED: SPIRONOLACTONE 25 MG TABLET ONE (10:20)
[2021-01-22] MEDS ORDERED: FAMOTIDINE/PF 20 MG/2 ML VIAL ONE (10:20)
[2021-01-22] MEDS ORDERED: PANTOPRAZOLE SODIUM 40 MG VIAL IVPUSH SCH (10:45)
[2021-01-22] MEDS ORDERED: PT OWN MED DRAWER 7, Y5N ONE (12:10)
[2021-01-22] MEDS ORDERED: FUROSEMIDE 40 MG/4 ML INJECTABLE VIAL IVPUSH ONE (13:35)
[2021-01-22] MEDS ORDERED: VANCOMYCIN 1 GRAM (PRE-DOCKED) 1,000 MG/250 ML BAG IVPB ONE ×2 (15:17→16:49)
[2021-01-22] MEDS ORDERED: FUROSEMIDE 40 MG/4 ML INJECTABLE VIAL ONE (15:38)
[2021-01-22] MEDS ORDERED: CEFEPIME 1 GM/100 ML BAG IVPB ONE (16:49)
[2021-01-22] MEDS ORDERED: DEXTROSE 5% IVPB SCH (18:00)
[2021-01-22] MEDS ORDERED: CEFEPIME IVPB SCH (18:00)
[2021-01-22] MEDS ORDERED: CEFEPIME 1 GM in DEXTROSE 5%-WATER 1 GM/100 ML BAG IVPB SCH (18:00)
[2021-01-22] MEDS ORDERED: WATER IVPB SCH (18:00)
[2021-01-22] MEDS: CHLORHEXIDINE GLUCONATE 4% CLEANSER FOR DECOLONIZATION TP SCH (21:57)
[2021-01-22] MEDS: ROSUVASTATIN CA 5 MG TABLET (FP) PO SCH (21:57)
[2021-01-22] MEDS: MUPIROCIN 2% TOPICAL OINTMENT FOR DECOLONIZATION NS SCH (21:57)
[2021-01-22] MEDS ORDERED: DEXTROSE 5%-WATER 100 ML IVPB ONE (21:59)
[2021-01-22] MEDS: PANTOPRAZOLE SODIUM 40 MG VIAL IVPUSH SCH (22:00)
[2021-01-22] MEDS ORDERED: ROSUVASTATIN CA 5 MG TABLET (FP) PO SCH (22:00)
[2021-01-22] MEDS: ZINC SULFATE 220 MG CAPSULE (FP) PO SCH (22:00)
[2021-01-22] MEDS: FAMOTIDINE/PF 20 MG/2 ML VIAL IVPB SCH (22:03)
[2021-01-22] MEDS: ASCORBIC ACID 500 MG TABLET (FP) PO SCH (22:03)
[2021-01-23 00:42] LABS: URINE APPEARANCE CLEAR; URINE BILIRUBIN NEGATIVE (NEGATIVE); URINE COLOR YELLOW; URINE GLUCOSE (UA) NEGATIVE (NEGATIVE); URINE KETONE NEGATIVE (NEGATIVE); URINE LEUK ESTERASE NEGATIVE (NEGATIVE); URINE NITRITE NEGATIVE (NEGATIVE); URINE PROTEIN NEGATIVE (NEGATIVE); URINE UROBILINOGEN 0.2 mg/dL (0.2-1.0)
[2021-01-23] MEDS ORDERED: CEFEPIME IVPB SCH (02:00)
[2021-01-23] MEDS ORDERED: WATER IVPB SCH (02:00)
[2021-01-23] MEDS ORDERED: DEXTROSE 5% IVPB SCH (02:00)
[2021-01-23] MEDS ORDERED: REMDESIVIR 100 MG in SODIUM CHLORIDE 230 ML IVPB SCH (02:00)
[2021-01-23] MEDS ORDERED: FAMOTIDINE 20 MG/50 ML IVPB 20 MG/50 ML MG IVPB ONE (06:07)
[2021-01-23] MEDS: guaiFENesin/D-M SUGAR-FREE/ACLHOL-FREE 118 ML BOTTLE PO PRN (06:21)
[2021-01-23 08:23] LABS: ALBUMIN 3.1 g/dl (3.4-5.0); CALCIUM 8.3 mg/dL (8.5-10.1); MAGNESIUM 2.3 mg/dL (1.8-2.4)
[2021-01-23 08:24] LABS: BASO % 0.3 % (0-2.0); BLOOD UREA NITROGEN 21.3 mg/dL (7-18); EOS % 3.5 % (0-4.5); HEMATOCRIT 24.3 % (32.4-45.2); HEMOGLOBIN 8.4 GM/dL (10.7-15.3); LYMPH % 14.5 % (8-40); MCH 32.9 pg (25.7-33.7); MCHC 34.7 g/dl (32.0-36.0); MEAN CELL VOLUME 94.9 fl (80-96); MEAN PLT VOLUME 7.4 fl (7.5-11.1); MONO % 2.5 % (3.8-10.2); NEUT % 79.2 % (42.8-82.8); PLATELET COUNT 207 10^3/uL (134-434); RBC 2.56 M/mm3 (3.60-5.2); RDW 20.2 % (11.6-15.6); WHITE BLOOD COUNT 6.8 K/mm3 (4.0-10.0)
[2021-01-23 08:26] LABS: CREATININE 0.7 mg/dL (0.55-1.3); PHOSPHOROUS 3.3 mg/dL (2.5-4.9)
[2021-01-23 08:28] LABS: TOT PROT 5.8 g/dl (6.4-8.2)
[2021-01-23] MEDS ORDERED: MACITENTAN 10 MG PO SCH (10:00)
[2021-01-23] MEDS ORDERED: DEXTROSE 5%-WATER 100 ML IVPB ONE ×4 (10:26→21:05)
[2021-01-23] MEDS ORDERED: CEFEPIME HCL 1 GM VIAL (RESTRICTED TO ID) ONE ×2 (10:26→18:07)
[2021-01-23] MEDS ORDERED: DOXYCYCLINE HYCLATE 100 MG VIAL ONE ×2 (10:26→21:05)
[2021-01-23] MEDS ORDERED: ACETAMINOPHEN 325 MG TABLET (FP) PO PRN (10:42)
[2021-01-23] MEDS: PANTOPRAZOLE SODIUM 40 MG VIAL IVPUSH SCH ×2 (10:57→21:13)
[2021-01-23] MEDS: MUPIROCIN 2% TOPICAL OINTMENT FOR DECOLONIZATION NS SCH ×2 (10:57→21:12)
[2021-01-23] MEDS: SPIRONOLACTONE 25 MG TABLET PO SCH (10:57)
[2021-01-23] MEDS: ASCORBIC ACID 500 MG TABLET (FP) PO SCH ×2 (10:57→21:14)
[2021-01-23] MEDS: DOXYCYCLINE INJECTION 100 MG in DEXTROSE 5%-WATER 100 ML IVPB SCH ×2 (10:57→21:19)
[2021-01-23] MEDS: DEXAMETHASONE SOD PHOSPHATE 4 MG/1 ML VIAL IVPB SCH (10:57)
[2021-01-23] MEDS: ZINC SULFATE 220 MG CAPSULE (FP) PO SCH ×2 (10:57→21:13)
[2021-01-23] MEDS: CEFEPIME 1 GM in DEXTROSE 5%-WATER 100 ML IVPB SCH ×2 (10:57→18:21)
[2021-01-23] MEDS ORDERED: FUROSEMIDE 40 MG/4 ML INJECTABLE VIAL IVPUSH ONE (11:15)
[2021-01-23] MEDS ORDERED: PT OWN MED DRAWER 7, Y5N ONE ×3 (11:57→21:17)
[2021-01-23] MEDS ORDERED: SODIUM CHLORIDE NASAL SPRAY 44 ML BOTTLE NS PRN (16:19)
[2021-01-23] MEDS: ACETAMINOPHEN 1000 MG/100 ML VIAL IVPB PRN ×2 (16:44→23:26)
[2021-01-23] MEDS ORDERED: VANCOMYCIN 1 GRAM (PRE-DOCKED) 1,000 MG/250 ML BAG IVPB SCH (18:30)
[2021-01-23] MEDS: CHLORHEXIDINE GLUCONATE 4% CLEANSER FOR DECOLONIZATION TP SCH (21:13)
[2021-01-23] MEDS: FAMOTIDINE/PF 20 MG/2 ML VIAL IVPB SCH ×2 (21:20→22:50)
[2021-01-23] MEDS: ROSUVASTATIN CA 5 MG TABLET (FP) PO SCH (23:26)
[2021-01-24] MEDS: ZINC SULFATE 220 MG CAPSULE (FP) PO SCH ×2 (01:00→21:40)
[2021-01-24] MEDS: CEFEPIME 1 GM in DEXTROSE 5%-WATER 100 ML IVPB SCH ×4 (05:25→18:07)
[2021-01-24] MEDS ORDERED: DEXTROSE 5%-WATER 100 ML IVPB ONE ×5 (05:26→21:32)
[2021-01-24] MEDS ORDERED: CEFEPIME HCL 1 GM VIAL (RESTRICTED TO ID) ONE ×3 (05:26→17:36)
[2021-01-24 07:52] LABS: BASO % 0.2 % (0-2.0); EOS % 4.5 % (0-4.5); HEMATOCRIT 23.6 % (32.4-45.2); LYMPH % 10.4 % (8-40); MCH 32.1 pg (25.7-33.7); MEAN CELL VOLUME 94.5 fl (80-96); MONO % 2.9 % (3.8-10.2); PLATELET COUNT 204 10^3/uL (134-434); RBC 2.49 M/mm3 (3.60-5.2); RDW 19.9 % (11.6-15.6); WHITE BLOOD COUNT 5.8 K/mm3 (4.0-10.0)
[2021-01-24 08:06] LABS: ALBUMIN 2.8 g/dl (3.4-5.0); CALCIUM 8.4 mg/dL (8.5-10.1)
[2021-01-24 08:07] LABS: MAGNESIUM 2.2 mg/dL (1.8-2.4)
[2021-01-24 08:10] LABS: CREATININE 0.5 mg/dL (0.55-1.3); PHOSPHOROUS 2.7 mg/dL (2.5-4.9)
[2021-01-24 08:11] LABS: BILIRUBIN,TOTAL 0.9 mg/dL (0.2-1); TOT PROT 5.8 g/dl (6.4-8.2)
[2021-01-24] MEDS ORDERED: DOXYCYCLINE HYCLATE 100 MG VIAL ONE ×2 (09:09→21:32)
[2021-01-24] MEDS: PANTOPRAZOLE SODIUM 40 MG VIAL IVPUSH SCH ×2 (09:20→21:40)
[2021-01-24] MEDS: DEXAMETHASONE SOD PHOSPHATE 4 MG/1 ML VIAL IVPB SCH (09:21)
[2021-01-24] MEDS: ASCORBIC ACID 500 MG TABLET (FP) PO SCH ×2 (09:24→21:40)
[2021-01-24] MEDS: ACETAMINOPHEN 1000 MG/100 ML VIAL IVPB PRN ×2 (09:25→22:00)
[2021-01-24] MEDS: MUPIROCIN 2% TOPICAL OINTMENT FOR DECOLONIZATION NS SCH ×2 (09:29→21:44)
[2021-01-24] MEDS: DOXYCYCLINE INJECTION 100 MG in DEXTROSE 5%-WATER 100 ML IVPB SCH ×2 (10:00→21:40)
[2021-01-24] MEDS ORDERED: PT OWN MED DRAWER 7, Y5N ONE ×2 (10:28→21:32)
[2021-01-24] MEDS: METHIMAZOLE 5 MG TABLET PO SCH (10:30)
[2021-01-24] MEDS: SPIRONOLACTONE 25 MG TABLET PO SCH (10:30)
[2021-01-24] MEDS: methylPREDNISolone NA SUCC 40 MG/1 ML VIAL IVPUSH SCH ×2 (14:54→21:39)
[2021-01-24] MEDS: ROSUVASTATIN CA 5 MG TABLET (FP) PO SCH (21:39)
[2021-01-24] MEDS: CHLORHEXIDINE GLUCONATE 4% CLEANSER FOR DECOLONIZATION TP SCH (21:40)
[2021-01-24] MEDS: APIXABAN 5 MG TABLET PO SCH (21:40)
[2021-01-25] MEDS ORDERED: DEXTROSE 5%-WATER 100 ML IVPB ONE ×5 (01:29→21:57)
[2021-01-25] MEDS ORDERED: CEFEPIME HCL 1 GM VIAL (RESTRICTED TO ID) ONE ×3 (01:29→17:19)
[2021-01-25] MEDS: CEFEPIME 1 GM in DEXTROSE 5%-WATER 100 ML IVPB SCH ×3 (01:31→17:26)
[2021-01-25] MEDS: methylPREDNISolone NA SUCC 40 MG/1 ML VIAL IVPUSH SCH ×3 (05:54→21:58)
[2021-01-25 07:53] LABS: HEMATOCRIT 24.1 % (32.4-45.2); HEMOGLOBIN 8.5 GM/dL (10.7-15.3); MCH 33.3 pg (25.7-33.7); MCHC 35.2 g/dl (32.0-36.0); MEAN CELL VOLUME 94.6 fl (80-96); MEAN PLT VOLUME 7.4 fl (7.5-11.1); PLATELET COUNT 243 10^3/uL (134-434); RBC 2.54 M/mm3 (3.60-5.2); RDW 19.1 % (11.6-15.6); WHITE BLOOD COUNT 4.3 K/mm3 (4.0-10.0)
[2021-01-25 08:10] LABS: ALBUMIN 2.9 g/dl (3.4-5.0); CALCIUM 8.6 mg/dL (8.5-10.1)
[2021-01-25 08:11] LABS: BLOOD UREA NITROGEN 14.3 mg/dL (7-18); MAGNESIUM 2.5 mg/dL (1.8-2.4)
[2021-01-25 08:14] LABS: CREATININE 0.5 mg/dL (0.55-1.3)
[2021-01-25 08:15] LABS: BILIRUBIN,TOTAL 0.9 mg/dL (0.2-1)
[2021-01-25 09:45] LABS: ANISOCYTOSIS 1+; PLATELET ESTIMATE NORMAL
[2021-01-25] MEDS: METHIMAZOLE 5 MG TABLET PO SCH (10:00)
[2021-01-25] MEDS ORDERED: DOXYCYCLINE HYCLATE 100 MG VIAL ONE ×2 (10:24→21:57)
[2021-01-25] MEDS: DOXYCYCLINE INJECTION 100 MG in DEXTROSE 5%-WATER 100 ML IVPB SCH ×2 (10:32→21:58)
[2021-01-25] MEDS: MUPIROCIN 2% TOPICAL OINTMENT FOR DECOLONIZATION NS SCH ×2 (10:33→21:59)
[2021-01-25] MEDS: ASCORBIC ACID 500 MG TABLET (FP) PO SCH ×2 (10:33→21:59)
[2021-01-25] MEDS: ZINC SULFATE 220 MG CAPSULE (FP) PO SCH ×2 (10:33→21:59)
[2021-01-25] MEDS: APIXABAN 5 MG TABLET PO SCH ×2 (10:33→21:59)
[2021-01-25] MEDS: SPIRONOLACTONE 25 MG TABLET PO SCH (10:33)
[2021-01-25] MEDS: PANTOPRAZOLE SODIUM 40 MG VIAL IVPUSH SCH ×2 (10:34→21:59)
[2021-01-25] MEDS ORDERED: PT OWN MED DRAWER 7, Y5N ONE (21:57)
[2021-01-25] MEDS: CHLORHEXIDINE GLUCONATE 4% CLEANSER FOR DECOLONIZATION TP SCH (21:59)
[2021-01-25] MEDS: ROSUVASTATIN CA 5 MG TABLET (FP) PO SCH (21:59)
[2021-01-25] MEDS: ACETAMINOPHEN 1000 MG/100 ML VIAL IVPB PRN (23:09)
[2021-01-25] MEDS ORDERED: ARTIFICIAL TEARS (POLYVINYL ALCOHOL) OPTH DROPS OU PRN (23:49)
[2021-01-26] MEDS ORDERED: DEXTROSE 5%-WATER 100 ML IVPB ONE ×4 (00:53→21:01)
[2021-01-26] MEDS ORDERED: CEFEPIME HCL 1 GM VIAL (RESTRICTED TO ID) ONE ×2 (00:53→09:58)
[2021-01-26] MEDS: CEFEPIME 1 GM in DEXTROSE 5%-WATER 100 ML IVPB SCH ×2 (01:03→10:31)
[2021-01-26] MEDS ORDERED: ACETAMINOPHEN 1000 MG/100 ML VIAL IVPB ONE ×2 (04:42→16:07)
[2021-01-26] MEDS: methylPREDNISolone NA SUCC 40 MG/1 ML VIAL IVPUSH SCH ×3 (05:49→21:22)
[2021-01-26] MEDS ORDERED: DOXYCYCLINE HYCLATE 100 MG VIAL ONE ×2 (09:56→21:01)
[2021-01-26] MEDS ORDERED: PT OWN MED DRAWER 7, Y5N ONE ×2 (09:57→21:24)
[2021-01-26] MEDS: SPIRONOLACTONE 25 MG TABLET PO SCH (10:25)
[2021-01-26] MEDS: MUPIROCIN 2% TOPICAL OINTMENT FOR DECOLONIZATION NS SCH ×2 (10:25→21:23)
[2021-01-26] MEDS: DOXYCYCLINE INJECTION 100 MG in DEXTROSE 5%-WATER 100 ML IVPB SCH ×2 (10:26→21:22)
[2021-01-26] MEDS: APIXABAN 5 MG TABLET PO SCH ×2 (10:26→21:22)
[2021-01-26] MEDS: METHIMAZOLE 5 MG TABLET PO SCH (10:26)
[2021-01-26] MEDS: PANTOPRAZOLE SODIUM 40 MG VIAL IVPUSH SCH ×2 (10:26→21:22)
[2021-01-26] MEDS: ZINC SULFATE 220 MG CAPSULE (FP) PO SCH ×2 (10:26→21:22)
[2021-01-26] MEDS: ASCORBIC ACID 500 MG TABLET (FP) PO SCH ×2 (10:29→21:22)
[2021-01-26 13:08] LABS: METHYLMALONIC ACID- 204 nmol/L (0-378)
[2021-01-26] MEDS ORDERED: DEXTROSE 5%-WATER - 50 ML IVPB ONE (14:26)
[2021-01-26] MEDS ORDERED: cefTRIAXone SODIUM 1 GM VIAL ONE (14:26)
[2021-01-26] MEDS: CEFTRIAXONE 1 GM in DEXTROSE 5%-WATER - 50 ML IVPB SCH (14:39)
[2021-01-26] MEDS: ROSUVASTATIN CA 5 MG TABLET (FP) PO SCH (21:22)
[2021-01-26] MEDS: CHLORHEXIDINE GLUCONATE 4% CLEANSER FOR DECOLONIZATION TP SCH (21:23)
[2021-01-27] MEDS ORDERED: guaiFENesin/D-METHORPHAN HB 10 ML UNIT-DOSE CUPS PO PRN (01:03)
[2021-01-27] MEDS: guaiFENesin/D-M SUGAR-FREE/ACLHOL-FREE 118 ML BOTTLE PO PRN (01:29)
[2021-01-27] MEDS: ACETAMINOPHEN 325 MG TABLET (FP) PO PRN ×2 (05:16→11:04)
[2021-01-27] MEDS: methylPREDNISolone NA SUCC 40 MG/1 ML VIAL IVPUSH SCH ×3 (05:59→22:11)
[2021-01-27 07:10] LABS: BASO % 0.1 % (0-2.0); HEMATOCRIT 23.4 % (32.4-45.2); LYMPH % 6.6 % (8-40); MCH 32.6 pg (25.7-33.7); MCHC 34.4 g/dl (32.0-36.0); MEAN CELL VOLUME 94.9 fl (80-96); MEAN PLT VOLUME 7.1 fl (7.5-11.1); MONO % 3.1 % (3.8-10.2); NEUT % 90.2 % (42.8-82.8); PLATELET COUNT 308 10^3/uL (134-434); RBC 2.46 M/mm3 (3.60-5.2); RDW 18.2 % (11.6-15.6); WHITE BLOOD COUNT 8.3 K/mm3 (4.0-10.0)
[2021-01-27] MEDS ORDERED: ALBUTEROL SO4 HFA INHALER IH PRN (07:19)
[2021-01-27] MEDS ORDERED: SODIUM CHLORIDE NASAL SPRAY 44 ML BOTTLE NS PRN (07:19)
[2021-01-27] MEDS ORDERED: MELATONIN 5 MG TABLETS PO PRN (07:19)
[2021-01-27 07:39] LABS: BLOOD UREA NITROGEN 22.4 mg/dL (7-18); CALCIUM 8.7 mg/dL (8.5-10.1)
[2021-01-27 07:40] LABS: ALBUMIN 2.6 g/dl (3.4-5.0); MAGNESIUM 2.4 mg/dL (1.8-2.4)
[2021-01-27 07:43] LABS: CREATININE 0.5 mg/dL (0.55-1.3); PHOSPHOROUS 3.5 mg/dL (2.5-4.9)
[2021-01-27 07:44] LABS: BILIRUBIN,TOTAL 0.6 mg/dL (0.2-1); TOT PROT 5.4 g/dl (6.4-8.2)
[2021-01-27] MEDS ORDERED: DEXTROSE 5%-WATER 100 ML IVPB ONE ×2 (09:34→21:27)
[2021-01-27] MEDS ORDERED: DOXYCYCLINE HYCLATE 100 MG VIAL ONE ×2 (09:34→21:26)
[2021-01-27] MEDS ORDERED: PT OWN MED DRAWER 7, Y5N ONE ×3 (09:35→21:27)
[2021-01-27] MEDS ORDERED: cefTRIAXone SODIUM 1 GM VIAL ONE (09:36)
[2021-01-27] MEDS ORDERED: DEXTROSE 5%-WATER - 50 ML IVPB ONE (09:36)
[2021-01-27] MEDS: ASCORBIC ACID 500 MG TABLET (FP) PO SCH ×2 (09:40→22:23)
[2021-01-27] MEDS: APIXABAN 5 MG TABLET PO SCH ×2 (09:40→22:11)
[2021-01-27] MEDS: ZINC SULFATE 220 MG CAPSULE (FP) PO SCH ×2 (09:40→22:11)
[2021-01-27] MEDS: SPIRONOLACTONE 25 MG TABLET PO SCH (09:40)
[2021-01-27] MEDS: METHIMAZOLE 5 MG TABLET PO SCH (09:41)
[2021-01-27] MEDS: CEFTRIAXONE 1 GM in DEXTROSE 5%-WATER - 50 ML IVPB SCH (09:41)
[2021-01-27] MEDS: DOXYCYCLINE INJECTION 100 MG in DEXTROSE 5%-WATER 100 ML IVPB SCH ×2 (09:42→22:11)
[2021-01-27] MEDS: PANTOPRAZOLE SODIUM 40 MG VIAL IVPUSH SCH ×2 (09:49→22:11)
[2021-01-27] MEDS ORDERED: MUPIROCIN 2% TOPICAL OINTMENT FOR DECOLONIZATION NS SCH (10:00)
[2021-01-27] MEDS: ALBUTEROL SO4 0.083% IH SOL 2.5 MG/3 ML VIAL.NEB. NEB SCH ×3 (11:36→20:22)
[2021-01-27] MEDS ORDERED: ALBUTEROL SO4 2.5/IPRATROPIUM 0.5 INH SOL 3 ML VIAL.NEB. NEB SCH (12:00)
[2021-01-27] MEDS ORDERED: CHLORHEXIDINE GLUCONATE 4% CLEANSER FOR DECOLONIZATION TP SCH (22:00)
[2021-01-27] MEDS: ROSUVASTATIN CA 5 MG TABLET (FP) PO SCH (22:11)
[2021-01-27] MEDS ORDERED: diphenhydrAMINE HCL 25 MG CAPSULE (FP) PO ONE (22:33)
[2021-01-28] MEDS: ACETAMINOPHEN 325 MG TABLET (FP) PO PRN (05:27)
[2021-01-28] MEDS: methylPREDNISolone NA SUCC 40 MG/1 ML VIAL IVPUSH SCH ×3 (05:45→21:52)
[2021-01-28 06:40] LABS: HEMATOCRIT 24.1 % (32.4-45.2); HEMOGLOBIN 8.2 GM/dL (10.7-15.3); MCH 32.5 pg (25.7-33.7); MEAN CELL VOLUME 95.6 fl (80-96); MEAN PLT VOLUME 7.1 fl (7.5-11.1); PLATELET COUNT 296 10^3/uL (134-434); RBC 2.52 M/mm3 (3.60-5.2)
[2021-01-28 06:56] LABS: CALCIUM 8.4 mg/dL (8.5-10.1)
[2021-01-28 06:58] LABS: BLOOD UREA NITROGEN 23.2 mg/dL (7-18)
[2021-01-28 07:00] LABS: CREATININE 0.6 mg/dL (0.55-1.3)
[2021-01-28] MEDS: ALBUTEROL SO4 0.083% IH SOL 2.5 MG/3 ML VIAL.NEB. NEB SCH ×4 (07:25→20:10)
[2021-01-28 08:49] LABS: ANISOCYTOSIS 1+; MACROCYTOSIS 1+; OVALOCYTE 1+; PLATELET ESTIMATE NORMAL; TARGET CELLS 1+
[2021-01-28] MEDS ORDERED: DEXTROSE 5%-WATER 100 ML IVPB ONE ×2 (09:49→21:15)
[2021-01-28] MEDS ORDERED: DOXYCYCLINE HYCLATE 100 MG VIAL ONE ×2 (09:49→21:15)
[2021-01-28] MEDS ORDERED: DEXTROSE 5%-WATER - 50 ML IVPB ONE (09:50)
[2021-01-28] MEDS ORDERED: cefTRIAXone SODIUM 1 GM VIAL ONE (09:50)
[2021-01-28] MEDS: DOXYCYCLINE INJECTION 100 MG in DEXTROSE 5%-WATER 100 ML IVPB SCH ×2 (09:52→21:51)
[2021-01-28] MEDS: APIXABAN 5 MG TABLET PO SCH ×2 (09:53→21:52)
[2021-01-28] MEDS: ZINC SULFATE 220 MG CAPSULE (FP) PO SCH ×2 (09:53→21:52)
[2021-01-28] MEDS: ASCORBIC ACID 500 MG TABLET (FP) PO SCH ×2 (09:53→21:52)
[2021-01-28] MEDS: CEFTRIAXONE 1 GM in DEXTROSE 5%-WATER - 50 ML IVPB SCH (09:53)
[2021-01-28] MEDS: PANTOPRAZOLE SODIUM 40 MG VIAL IVPUSH SCH ×2 (09:53→21:52)
[2021-01-28] MEDS: SPIRONOLACTONE 25 MG TABLET PO SCH (09:53)
[2021-01-28] MEDS: METHIMAZOLE 5 MG TABLET PO SCH (09:54)
[2021-01-28 11:31] VITALS: BMI 26.9
[2021-01-28] MEDS ORDERED: diphenhydrAMINE HCL 25 MG CAPSULE (FP) PO ONE (20:18)
[2021-01-28] MEDS: ROSUVASTATIN CA 5 MG TABLET (FP) PO SCH (21:52)
[2021-01-29] MEDS: ACETAMINOPHEN 325 MG TABLET (FP) PO PRN ×2 (02:12→14:55)
[2021-01-29] MEDS: methylPREDNISolone NA SUCC 40 MG/1 ML VIAL IVPUSH SCH ×3 (06:51→21:33)
[2021-01-29] MEDS: ALBUTEROL SO4 0.083% IH SOL 2.5 MG/3 ML VIAL.NEB. NEB SCH ×4 (07:53→20:16)
[2021-01-29 08:07] LABS: HEMATOCRIT 24.2 % (32.4-45.2); HEMOGLOBIN 8.4 GM/dL (10.7-15.3); MCH 33.1 pg (25.7-33.7); MCHC 34.8 g/dl (32.0-36.0); MEAN CELL VOLUME 95.3 fl (80-96); MEAN PLT VOLUME 7.2 fl (7.5-11.1); PLATELET COUNT 321 10^3/uL (134-434); RBC 2.54 M/mm3 (3.60-5.2); RDW 17.9 % (11.6-15.6)
[2021-01-29 08:21] LABS: CALCIUM 8.4 mg/dL (8.5-10.1)
[2021-01-29 08:23] LABS: ALBUMIN 2.7 g/dl (3.4-5.0); BLOOD UREA NITROGEN 28.1 mg/dL (7-18)
[2021-01-29 08:24] LABS: CREATININE 0.7 mg/dL (0.55-1.3)
[2021-01-29 08:26] LABS: BILIRUBIN,TOTAL 0.6 mg/dL (0.2-1); TOT PROT 5.4 g/dl (6.4-8.2)
[2021-01-29] MEDS ORDERED: DOXYCYCLINE HYCLATE 100 MG VIAL ONE (09:28)
[2021-01-29] MEDS ORDERED: DEXTROSE 5%-WATER 100 ML IVPB ONE (09:28)
[2021-01-29] MEDS ORDERED: PT OWN MED DRAWER 7, Y5N ONE (09:30)
[2021-01-29] MEDS ORDERED: cefTRIAXone SODIUM 1 GM VIAL ONE (09:30)
[2021-01-29] MEDS ORDERED: DEXTROSE 5%-WATER - 50 ML IVPB ONE (09:30)
[2021-01-29] MEDS: ASCORBIC ACID 500 MG TABLET (FP) PO SCH ×2 (10:00→21:33)
[2021-01-29] MEDS: SPIRONOLACTONE 25 MG TABLET PO SCH (10:00)
[2021-01-29] MEDS: CEFTRIAXONE 1 GM in DEXTROSE 5%-WATER - 50 ML IVPB SCH (10:01)
[2021-01-29] MEDS: ZINC SULFATE 220 MG CAPSULE (FP) PO SCH ×2 (10:01→21:33)
[2021-01-29] MEDS: PANTOPRAZOLE SODIUM 40 MG VIAL IVPUSH SCH ×2 (10:01→21:33)
[2021-01-29] MEDS: APIXABAN 5 MG TABLET PO SCH ×2 (10:01→21:33)
[2021-01-29] MEDS: DOXYCYCLINE INJECTION 100 MG in DEXTROSE 5%-WATER 100 ML IVPB SCH (10:02)
[2021-01-29] MEDS: METHIMAZOLE 5 MG TABLET PO SCH (10:02)
[2021-01-29 11:09] LABS: ANISOCYTOSIS 1+; MACROCYTOSIS 0; OVALOCYTE 2+; PLATELET ESTIMATE NORMAL
[2021-01-29] MEDS: ROSUVASTATIN CA 5 MG TABLET (FP) PO SCH (21:33)
[2021-01-30] MEDS: methylPREDNISolone NA SUCC 40 MG/1 ML VIAL IVPUSH SCH ×3 (05:28→21:42)
[2021-01-30] MEDS: ACETAMINOPHEN 325 MG TABLET (FP) PO PRN ×2 (07:22→15:40)
[2021-01-30] MEDS: ALBUTEROL SO4 0.083% IH SOL 2.5 MG/3 ML VIAL.NEB. NEB SCH ×4 (07:50→20:03)
[2021-01-30 08:13] LABS: HEMATOCRIT 25.5 % (32.4-45.2); HEMOGLOBIN 8.8 GM/dL (10.7-15.3); MCH 32.8 pg (25.7-33.7); MCHC 34.4 g/dl (32.0-36.0); MEAN CELL VOLUME 95.4 fl (80-96); MEAN PLT VOLUME 7.1 fl (7.5-11.1); PLATELET COUNT 327 10^3/uL (134-434); RBC 2.67 M/mm3 (3.60-5.2); RDW 18.2 % (11.6-15.6); WHITE BLOOD COUNT 4.4 K/mm3 (4.0-10.0)
[2021-01-30 08:27] LABS: CALCIUM 8.7 mg/dL (8.5-10.1)
[2021-01-30 08:28] LABS: MAGNESIUM 2.8 mg/dL (1.8-2.4)
[2021-01-30 08:30] LABS: BLOOD UREA NITROGEN 27.7 mg/dL (7-18)
[2021-01-30 08:31] LABS: CREATININE 0.6 mg/dL (0.55-1.3)
[2021-01-30 08:32] LABS: BILIRUBIN,TOTAL 0.7 mg/dL (0.2-1); TOT PROT 5.8 g/dl (6.4-8.2)
[2021-01-30] MEDS ORDERED: PT OWN MED DRAWER 7, Y5N ONE (09:08)
[2021-01-30] MEDS: APIXABAN 5 MG TABLET PO SCH ×2 (09:17→21:42)
[2021-01-30] MEDS: PANTOPRAZOLE SODIUM 40 MG VIAL IVPUSH SCH ×2 (09:17→21:42)
[2021-01-30] MEDS: ZINC SULFATE 220 MG CAPSULE (FP) PO SCH ×2 (09:17→21:42)
[2021-01-30] MEDS: ASCORBIC ACID 500 MG TABLET (FP) PO SCH ×2 (09:17→21:42)
[2021-01-30] MEDS: METHIMAZOLE 5 MG TABLET PO SCH (09:18)
[2021-01-30] MEDS: SPIRONOLACTONE 25 MG TABLET PO SCH (09:18)
[2021-01-30] MEDS ORDERED: diphenhydrAMINE HCL 25 MG CAPSULE (FP) PO ONE (20:53)
[2021-01-30] MEDS ORDERED: LYTES/YERBA SANTA 60 ML SPRAY MM PRN (21:13)
[2021-01-30] MEDS: ROSUVASTATIN CA 5 MG TABLET (FP) PO SCH (21:42)
[2021-01-31] MEDS: ACETAMINOPHEN 325 MG TABLET (FP) PO PRN ×3 (01:00→15:16)
[2021-01-31] MEDS: methylPREDNISolone NA SUCC 40 MG/1 ML VIAL IVPUSH SCH ×3 (05:53→21:08)
[2021-01-31] MEDS: ALBUTEROL SO4 0.083% IH SOL 2.5 MG/3 ML VIAL.NEB. NEB SCH ×4 (08:00→19:49)
[2021-01-31] MEDS ORDERED: PT OWN MED DRAWER 7, Y5N ONE (08:57)
[2021-01-31] MEDS: ASCORBIC ACID 500 MG TABLET (FP) PO SCH ×2 (09:15→21:08)
[2021-01-31] MEDS: PANTOPRAZOLE SODIUM 40 MG VIAL IVPUSH SCH ×2 (09:15→21:08)
[2021-01-31] MEDS: ZINC SULFATE 220 MG CAPSULE (FP) PO SCH ×2 (09:15→21:09)
[2021-01-31] MEDS: SPIRONOLACTONE 25 MG TABLET PO SCH (09:15)
[2021-01-31] MEDS: APIXABAN 5 MG TABLET PO SCH ×2 (09:15→21:09)
[2021-01-31] MEDS: METHIMAZOLE 5 MG TABLET PO SCH (09:16)
[2021-01-31] MEDS ORDERED: ACETAMINOPHEN 1000 MG/100 ML VIAL IVPB ONE (20:03)
[2021-01-31] MEDS: ROSUVASTATIN CA 5 MG TABLET (FP) PO SCH (21:09)
[2021-02-01] MEDS ORDERED: ACETAMINOPHEN 1000 MG/100 ML VIAL IVPB ONE (01:40)
[2021-02-01] MEDS: methylPREDNISolone NA SUCC 40 MG/1 ML VIAL IVPUSH SCH ×3 (06:06→21:44)
[2021-02-01] MEDS ORDERED: PT OWN MED DRAWER 7, Y5N ONE ×4 (06:38→21:52)
[2021-02-01 07:45] LABS: HEMATOCRIT 25.4 % (32.4-45.2); HEMOGLOBIN 8.6 GM/dL (10.7-15.3); MCH 32.3 pg (25.7-33.7); MCHC 33.7 g/dl (32.0-36.0); MEAN CELL VOLUME 95.8 fl (80-96); PLATELET COUNT 292 10^3/uL (134-434); RBC 2.65 M/mm3 (3.60-5.2); RDW 18.2 % (11.6-15.6); WHITE BLOOD COUNT 3.4 K/mm3 (4.0-10.0)
[2021-02-01 08:07] LABS: CALCIUM 8.6 mg/dL (8.5-10.1)
[2021-02-01 08:08] LABS: BLOOD UREA NITROGEN 27.3 mg/dL (7-18); MAGNESIUM 2.7 mg/dL (1.8-2.4)
[2021-02-01 08:11] LABS: CREATININE 0.6 mg/dL (0.55-1.3); PHOSPHOROUS 3.2 mg/dL (2.5-4.9)
[2021-02-01] MEDS: ALBUTEROL SO4 0.083% IH SOL 2.5 MG/3 ML VIAL.NEB. NEB SCH (08:13)
[2021-02-01] MEDS: APIXABAN 5 MG TABLET PO SCH ×2 (09:26→21:44)
[2021-02-01] MEDS: ASCORBIC ACID 500 MG TABLET (FP) PO SCH ×2 (09:26→21:44)
[2021-02-01] MEDS: ZINC SULFATE 220 MG CAPSULE (FP) PO SCH ×2 (09:26→21:44)
[2021-02-01] MEDS: SPIRONOLACTONE 25 MG TABLET PO SCH (09:26)
[2021-02-01] MEDS: PANTOPRAZOLE SODIUM 40 MG VIAL IVPUSH SCH ×2 (09:27→21:44)
[2021-02-01] MEDS: METHIMAZOLE 5 MG TABLET PO SCH (09:28)
[2021-02-01] MEDS: POLYETHYLENE GLYCOL (HEALTHYLAX) 3350 17 GM PACKET PO SCH (09:28)
[2021-02-01] MEDS ORDERED: POLYETHYLENE GLYCOL (HEALTHYLAX) 3350 17 GM PACKET PO SCH (10:00)
[2021-02-01] MEDS: ACETAMINOPHEN 325 MG TABLET (FP) PO PRN ×2 (10:20→18:29)
[2021-02-01] MEDS ORDERED: MAG HYDROX/AL HYDROX/SIMETH -MYLANTA- ORAL SUSPENSION PO SCH (12:00)
[2021-02-01] MEDS: MAG HYDROX/AL HYDROX/SIMETH 30 ML UNIT-DOSE CUP PO SCH ×3 (12:32→23:21)
[2021-02-01] MEDS: ROSUVASTATIN CA 5 MG TABLET (FP) PO SCH (21:44)
[2021-02-02] MEDS: ACETAMINOPHEN 325 MG TABLET (FP) PO PRN ×3 (04:10→21:47)
[2021-02-02] MEDS: methylPREDNISolone NA SUCC 40 MG/1 ML VIAL IVPUSH SCH ×3 (05:16→21:45)
[2021-02-02] MEDS: MAG HYDROX/AL HYDROX/SIMETH 30 ML UNIT-DOSE CUP PO SCH (05:16)
[2021-02-02] MEDS ORDERED: PT OWN MED DRAWER 7, Y5N ONE ×2 (09:12→13:23)
[2021-02-02] MEDS: ASCORBIC ACID 500 MG TABLET (FP) PO SCH ×2 (09:28→21:46)
[2021-02-02] MEDS: SPIRONOLACTONE 25 MG TABLET PO SCH (09:28)
[2021-02-02] MEDS: ZINC SULFATE 220 MG CAPSULE (FP) PO SCH ×2 (09:28→21:45)
[2021-02-02] MEDS: APIXABAN 5 MG TABLET PO SCH ×2 (09:28→21:45)
[2021-02-02] MEDS: PANTOPRAZOLE SODIUM 40 MG VIAL IVPUSH SCH ×2 (09:29→21:46)
[2021-02-02] MEDS: POLYETHYLENE GLYCOL (HEALTHYLAX) 3350 17 GM PACKET PO SCH (09:29)
[2021-02-02] MEDS: METHIMAZOLE 5 MG TABLET PO SCH (09:29)
[2021-02-02] MEDS ORDERED: methylPREDNISolone NA SUCC 40 MG/1 ML VIAL IVPUSH SCH (10:00)
[2021-02-02] MEDS ORDERED: MAG HYDROX/AL HYDROX/SIMETH -MYLANTA- ORAL SUSPENSION PO PRN (10:39)
[2021-02-02] MEDS: ROSUVASTATIN CA 5 MG TABLET (FP) PO SCH (21:45)
[2021-02-03] MEDS: methylPREDNISolone NA SUCC 40 MG/1 ML VIAL IVPUSH SCH ×3 (04:38→21:15)
[2021-02-03] MEDS: ACETAMINOPHEN 325 MG TABLET (FP) PO PRN ×2 (06:06→21:14)
[2021-02-03 07:02] LABS: HEMATOCRIT 30.6 % (32.4-45.2); HEMOGLOBIN 10.3 GM/dL (10.7-15.3); MCH 32.5 pg (25.7-33.7); MCHC 33.6 g/dl (32.0-36.0); MEAN CELL VOLUME 96.7 fl (80-96); MEAN PLT VOLUME 6.9 fl (7.5-11.1); PLATELET COUNT 338 10^3/uL (134-434); RBC 3.17 M/mm3 (3.60-5.2); RDW 17.9 % (11.6-15.6); WHITE BLOOD COUNT 4.8 K/mm3 (4.0-10.0)
[2021-02-03 07:18] LABS: CALCIUM 8.6 mg/dL (8.5-10.1)
[2021-02-03 07:19] LABS: BLOOD UREA NITROGEN 29.2 mg/dL (7-18); MAGNESIUM 2.8 mg/dL (1.8-2.4)
[2021-02-03 07:22] LABS: CREATININE 0.6 mg/dL (0.55-1.3); PHOSPHOROUS 3.8 mg/dL (2.5-4.9)
[2021-02-03] MEDS ORDERED: PT OWN MED DRAWER 7, Y5N ONE ×4 (07:38→14:33)
[2021-02-03] MEDS: METHIMAZOLE 5 MG TABLET PO SCH (09:59)
[2021-02-03] MEDS: ASCORBIC ACID 500 MG TABLET (FP) PO SCH ×2 (09:59→21:16)
[2021-02-03] MEDS: SPIRONOLACTONE 25 MG TABLET PO SCH (09:59)
[2021-02-03] MEDS: APIXABAN 5 MG TABLET PO SCH ×2 (09:59→21:15)
[2021-02-03] MEDS: POLYETHYLENE GLYCOL (HEALTHYLAX) 3350 17 GM PACKET PO SCH (09:59)
[2021-02-03] MEDS: ZINC SULFATE 220 MG CAPSULE (FP) PO SCH ×2 (09:59→21:16)
[2021-02-03] MEDS: PANTOPRAZOLE SODIUM 40 MG VIAL IVPUSH SCH ×2 (09:59→21:14)
[2021-02-03] MEDS: MAG HYDROX/AL HYDROX/SIMETH 30 ML UNIT-DOSE CUP PO PRN ×2 (10:52→21:14)
[2021-02-03] MEDS: ROSUVASTATIN CA 5 MG TABLET (FP) PO SCH (21:15)
[2021-02-04] MEDS ORDERED: PT OWN MED DRAWER 7, Y5N ONE ×3 (08:36→14:14)
[2021-02-04] MEDS: ASCORBIC ACID 500 MG TABLET (FP) PO SCH ×2 (09:32→22:00)
[2021-02-04] MEDS: SPIRONOLACTONE 25 MG TABLET PO SCH (09:32)
[2021-02-04] MEDS: APIXABAN 5 MG TABLET PO SCH ×2 (09:32→22:00)
[2021-02-04] MEDS: POLYETHYLENE GLYCOL (HEALTHYLAX) 3350 17 GM PACKET PO SCH ×2 (09:32→09:37)
[2021-02-04] MEDS: ZINC SULFATE 220 MG CAPSULE (FP) PO SCH ×2 (09:32→22:00)
[2021-02-04] MEDS: methylPREDNISolone NA SUCC 40 MG/1 ML VIAL IVPUSH SCH ×2 (09:33→22:00)
[2021-02-04] MEDS: PANTOPRAZOLE SODIUM 40 MG VIAL IVPUSH SCH ×2 (09:33→22:00)
[2021-02-04] MEDS: METHIMAZOLE 5 MG TABLET PO SCH (09:33)
[2021-02-04] MEDS: MAG HYDROX/AL HYDROX/SIMETH 30 ML UNIT-DOSE CUP PO PRN (22:00)
[2021-02-04] MEDS: ACETAMINOPHEN 325 MG TABLET (FP) PO PRN (22:00)
[2021-02-04] MEDS: ROSUVASTATIN CA 5 MG TABLET (FP) PO SCH (22:00)
[2021-02-05] MEDS: ACETAMINOPHEN 325 MG TABLET (FP) PO PRN ×3 (03:49→22:00)
[2021-02-05] MEDS: MAG HYDROX/AL HYDROX/SIMETH 30 ML UNIT-DOSE CUP PO PRN (06:13)
[2021-02-05] MEDS: SPIRONOLACTONE 25 MG TABLET PO SCH (09:24)
[2021-02-05] MEDS: APIXABAN 5 MG TABLET PO SCH ×2 (09:24→21:47)
[2021-02-05] MEDS: PANTOPRAZOLE SODIUM 40 MG VIAL IVPUSH SCH ×2 (09:24→21:47)
[2021-02-05] MEDS: POLYETHYLENE GLYCOL (HEALTHYLAX) 3350 17 GM PACKET PO SCH (09:24)
[2021-02-05] MEDS: methylPREDNISolone NA SUCC 40 MG/1 ML VIAL IVPUSH SCH ×2 (09:24→21:47)
[2021-02-05] MEDS: ZINC SULFATE 220 MG CAPSULE (FP) PO SCH ×2 (09:25→21:47)
[2021-02-05] MEDS: METHIMAZOLE 5 MG TABLET PO SCH (09:25)
[2021-02-05] MEDS: ASCORBIC ACID 500 MG TABLET (FP) PO SCH ×2 (09:25→21:47)
[2021-02-05] MEDS: ROSUVASTATIN CA 5 MG TABLET (FP) PO SCH (21:47)
[2021-02-05] MEDS ORDERED: PT OWN MED DRAWER 7, Y5N ONE (22:50)
[2021-02-06] MEDS: ACETAMINOPHEN 325 MG TABLET (FP) PO PRN (05:59)
[2021-02-06] MEDS ORDERED: PT OWN MED DRAWER 7, Y5N ONE ×2 (06:21→10:11)
[2021-02-06 09:47] LABS: CALCIUM 8.8 mg/dL (8.5-10.1)
[2021-02-06 09:50] LABS: CREATININE 0.6 mg/dL (0.55-1.3)
[2021-02-06 10:36] VITALS: BP 109/58; PULSE 97; TEMP 98.3
[2021-02-06] MEDS: APIXABAN 5 MG TABLET PO SCH (10:37)
[2021-02-06] MEDS: methylPREDNISolone NA SUCC 40 MG/1 ML VIAL IVPUSH SCH (10:37)
[2021-02-06] MEDS: ASCORBIC ACID 500 MG TABLET (FP) PO SCH (10:37)
[2021-02-06] MEDS: PANTOPRAZOLE SODIUM 40 MG VIAL IVPUSH SCH (10:37)
[2021-02-06] MEDS: ZINC SULFATE 220 MG CAPSULE (FP) PO SCH (10:37)
[2021-02-06] MEDS: SPIRONOLACTONE 25 MG TABLET PO SCH (10:37)
[2021-02-06] MEDS: METHIMAZOLE 5 MG TABLET PO SCH (10:37)
[2021-02-06] MEDS: POLYETHYLENE GLYCOL (HEALTHYLAX) 3350 17 GM PACKET PO SCH ×2 (10:37→11:10)
== END 2021-02-06 15:01 | disposition home or self-care (01) | DRG 193 ==
LOC: JER 13:46 → JERBED 20:51 → JICU 01-22 17:59 → J4S 01-28 17:15
PROVIDERS: ADMIT Internal Medicine
PROC: 30233N1 Transfusion of Nonautologous Red Blood Cells into Peripheral Vein, Percutaneous Approach (ICD-10-PCS; principal; 2021-01-22)
DX: J18.9 Pneumonia, unspecified organism (principal); J96.21 Acute and chronic respiratory failure with hypoxia; I50.33 Acute on chronic diastolic (congestive) heart failure; D62 Acute posthemorrhagic anemia; E78.5 Hyperlipidemia, unspecified; E05.90 Thyrotoxicosis, unspecified without thyrotoxic crisis or storm; I27.20 Pulmonary hypertension, unspecified; I11.0 Hypertensive heart disease with heart failure; I48.0 Paroxysmal atrial fibrillation; J44.9 Chronic obstructive pulmonary disease, unspecified; I07.1 Rheumatic tricuspid insufficiency; G43.909 Migraine, unspecified, not intractable, without status migrainosus; E66.3 Overweight; Z68.27 Body mass index [BMI] 27.0-27.9, adult; Z86.711 Personal history of pulmonary embolism; Z88.0 Allergy status to penicillin
CPT/HCPCS: 36415; 36430; 36600; 71045-TC-FY; 71275-TC; 80048; 80053; 81003; 82272; 82550; 82607; 82728; 82746; 82803; 83540; 83550; 83735; 83880; 83921; 84100; 84439; 84443; 84484; 85025; 85027; 85379; 85651; 86140; 86850; 86900; 86901; 86922; 87040; 87070; 87081; 87086; 87205; 87804; 87807; 87899; 93005; 93010; 94640; 97116-GP; 97161-GP; 99291; C9399; C9803; J0131; P9058; Q9967; U0003; U0005

== ENCOUNTER 2021-07-20 13:02 | Observation (INO) | payer OTHER, BC ==
[2021-07-20] MEDS ORDERED: SODIUM CHLORIDE 0.9% 500 ML INFUS.BAG IV ONE (14:15)
[2021-07-20 15:29] LABS: BASO % 0.5 % (0-2.0); EOS % 2.4 % (0-4.5); HEMATOCRIT 22.2 % (32.4-45.2); HEMOGLOBIN 7.3 GM/dL (10.7-15.3); LYMPH % 21.5 % (8-40); MCH 27.6 pg (25.7-33.7); MEAN CELL VOLUME 83.4 fl (80-96); MEAN PLT VOLUME 7.2 fl (7.5-11.1); MONO % 6.9 % (3.8-10.2); NEUT % 68.7 % (42.8-82.8); PLATELET COUNT 264 10^3/uL (134-434); RBC 2.66 M/mm3 (3.60-5.2); RDW 17.2 % (11.6-15.6); WHITE BLOOD COUNT 3.6 K/mm3 (4.0-10.0)
[2021-07-20 15:33] LABS: INR 1.13 (0.83-1.09)
[2021-07-20 15:36] LABS: ACTIVATED PTT 27.2 SECONDS (25.2-36.5)
[2021-07-20 15:53] LABS: CALCIUM 8.8 mg/dL (8.5-10.1)
[2021-07-20 15:54] LABS: BLOOD UREA NITROGEN 11.4 mg/dL (7-18)
[2021-07-20 15:56] LABS: CREATININE 0.9 mg/dL (0.55-1.3)
[2021-07-20 15:58] LABS: BILIRUBIN,TOTAL 0.2 mg/dL (0.2-1); TOT PROT 6.9 g/dl (6.4-8.2)
[2021-07-20] MEDS ORDERED: ACETAMINOPHEN/CAFFEINE/BUTALBITAL 1 TAB PO ONE (17:08)
[2021-07-20 19:19] LABS: HEMATOCRIT 21.7 % (32.4-45.2); HEMOGLOBIN 7.1 GM/dL (10.7-15.3); MCH 27.6 pg (25.7-33.7); MCHC 32.8 g/dl (32.0-36.0); MEAN CELL VOLUME 84.2 fl (80-96); PLATELET COUNT 249 10^3/uL (134-434); RBC 2.58 M/mm3 (3.60-5.2); RDW 17.1 % (11.6-15.6); WHITE BLOOD COUNT 4.2 K/mm3 (4.0-10.0)
[2021-07-20] MEDS ORDERED: ACETAMINOPHEN/CAFFEINE/BUTALBITAL 1 TAB ONE (20:03)
[2021-07-20] MEDS ORDERED: PATIENT'S OWN MEDICATION (NON-FORMULARY) (Butalbital/Acetaminophen [Butalbital-Acetaminoph PO PRN (20:11)
[2021-07-20 20:34] LABS: MAGNESIUM 2.5 mg/dL (1.8-2.4)
[2021-07-20] MEDS: METHIMAZOLE 5 MG TABLET PO SCH (23:56)
[2021-07-21 01:04] VITALS: BMI 27.0
[2021-07-21] MEDS: ACETAMINOPHEN/CAFFEINE/BUTALBITAL 1 TAB PO PRN ×2 (01:22→10:37)
[2021-07-21 09:45] LABS: BASO % 0.4 % (0-2.0); EOS % 1.8 % (0-4.5); HEMATOCRIT 26.7 % (32.4-45.2); HEMOGLOBIN 8.9 GM/dL (10.7-15.3); LYMPH % 17.2 % (8-40); MCH 27.5 pg (25.7-33.7); MCHC 33.2 g/dl (32.0-36.0); MEAN CELL VOLUME 82.9 fl (80-96); MEAN PLT VOLUME 7.3 fl (7.5-11.1); MONO % 6.1 % (3.8-10.2); NEUT % 74.5 % (42.8-82.8); PLATELET COUNT 269 10^3/uL (134-434); RBC 3.23 M/mm3 (3.60-5.2); RDW 16.6 % (11.6-15.6); WHITE BLOOD COUNT 4.8 K/mm3 (4.0-10.0)
[2021-07-21] MEDS ORDERED: DIGOXIN 0.125 MG TABLET PO SCH (10:00)
[2021-07-21] MEDS ORDERED: PANTOPRAZOLE SODIUM 40 MG VIAL IVPUSH SCH (10:00)
[2021-07-21] MEDS ORDERED: ROSUVASTATIN CA 10 MG TABLET PO SCH (10:00)
[2021-07-21 10:19] LABS: BLOOD UREA NITROGEN 9.3 mg/dL (7-18); CALCIUM 9.4 mg/dL (8.5-10.1); MAGNESIUM 2.8 mg/dL (1.8-2.4); PHOSPHOROUS 3.1 mg/dL (2.5-4.9)
[2021-07-21 10:20] LABS: ALBUMIN 4.1 g/dl (3.4-5.0); BILIRUBIN,TOTAL 0.7 mg/dL (0.2-1); TOT PROT 6.7 g/dl (6.4-8.2)
[2021-07-21 10:22] LABS: CREATININE 0.8 mg/dL (0.55-1.3)
[2021-07-21] MEDS: METHIMAZOLE 5 MG TABLET PO SCH (10:39)
[2021-07-21 10:42] VITALS: PULSE 69
[2021-07-21] MEDS ORDERED: ONDANSETRON *ODT* 4 MG TABLET SL ONE (12:52)
[2021-07-21 13:27] VITALS: BP 121/61; TEMP 98.3
[2021-07-21] MEDS ORDERED: RIOCIGUAT 1 MG PO SCH (14:00)
[2021-07-21] MEDS ORDERED: APIXABAN 5 MG TABLET PO SCH (22:00)
== END 2021-07-21 14:25 | disposition home or self-care (01) ==
LOC: JER 13:02 → JERBED 17:11 → J5S 07-21 00:25
PROVIDERS: ADMIT Internal Medicine; ATTEND Internal Medicine
PROC: 3E033GC Introduction of Other Therapeutic Substance into Peripheral Vein, Percutaneous Approach (ICD-10-PCS; principal; 2021-07-20)
PROC: 3E0337Z Introduction of Electrolytic and Water Balance Substance into Peripheral Vein, Percutaneous Approach (ICD-10-PCS; 2021-07-20)
DX: D64.9 Anemia, unspecified (principal); I27.20 Pulmonary hypertension, unspecified; E05.90 Thyrotoxicosis, unspecified without thyrotoxic crisis or storm; E78.5 Hyperlipidemia, unspecified; Z79.01 Long term (current) use of anticoagulants; Z99.81 Dependence on supplemental oxygen; R53.1 Weakness; R79.89 Other specified abnormal findings of blood chemistry; Z86.711 Personal history of pulmonary embolism
CPT/HCPCS: 0241U-QW; 36415; 36430; 74176-TC; 80053; 82272; 82728; 83540; 83550; 83735; 84100; 85025; 85027; 85045; 85610; 85730; 86850; 86900; 86901; 86922; 93005; 93010; 96374; 99285-25; G0378; P9058

== ENCOUNTER 2021-09-11 09:27 | Emergency (ER) | payer OTHER, BC ==
[2021-09-11 09:39] VITALS: TEMP 98.4; BMI 25.1
[2021-09-11 10:32] LABS: BASO % 0.4 % (0-2.0); EOS % 1.2 % (0-4.5); HEMATOCRIT 27.3 % (32.4-45.2); HEMOGLOBIN 9.1 GM/dL (10.7-15.3); LYMPH % 14.1 % (8-40); MCH 27.3 pg (25.7-33.7); MCHC 33.2 g/dl (32.0-36.0); MEAN CELL VOLUME 82.4 fl (80-96); MEAN PLT VOLUME 6.8 fl (7.5-11.1); NEUT % 79.3 % (42.8-82.8); PLATELET COUNT 251 10^3/uL (134-434); RBC 3.31 M/mm3 (3.60-5.2); RDW 18.5 % (11.6-15.6); WHITE BLOOD COUNT 4.9 K/mm3 (4.0-10.0)
[2021-09-11 10:58] LABS: CALCIUM 8.8 mg/dL (8.5-10.1)
[2021-09-11 10:59] LABS: BLOOD UREA NITROGEN 10.8 mg/dL (7-18)
[2021-09-11 11:02] LABS: CREATININE 0.9 mg/dL (0.55-1.3)
[2021-09-11 11:03] LABS: PH,URINE 6.5 (5.0-8.0); URINE APPEARANCE CLEAR; URINE BILIRUBIN NEGATIVE (NEGATIVE); URINE COLOR YELLOW; URINE GLUCOSE (UA) NEGATIVE (NEGATIVE); URINE KETONE NEGATIVE (NEGATIVE); URINE LEUK ESTERASE NEGATIVE (NEGATIVE); URINE NITRITE NEGATIVE (NEGATIVE); URINE PROTEIN NEGATIVE (NEGATIVE); URINE UROBILINOGEN 0.2 mg/dL (0.2-1.0)
[2021-09-11 11:04] LABS: BILIRUBIN,TOTAL 0.2 mg/dL (0.2-1); TOT PROT 6.8 g/dl (6.4-8.2)
[2021-09-11] MEDS ORDERED: POTASSIUM CHLORIDE TABS 20 MEQ TABLET.ER (FP) PO ONE ×2 (11:18→12:03)
[2021-09-11 13:34] VITALS: BP 119/70; PULSE 76; RESP 18
== END 2021-09-11 13:34 | disposition home or self-care (01) ==
LOC: JER 09:27
DX: J96.11 Chronic respiratory failure with hypoxia (principal); R53.1 Weakness
CPT/HCPCS: 0241U-QW; 36415; 71045-TC-FY; 80053; 81003; 83735; 84439; 84443; 84484; 85025; 86850; 86900; 86901; 87086; 93005; 93010; 99285-25

== ENCOUNTER 2022-08-04 11:06 | Emergency (ER) | payer OTHER, BC ==
[2022-08-04 11:14] VITALS: BP 145/67; PULSE 113; RESP 18; TEMP 97; BMI 26.8
[2022-08-04 12:26] LABS: BASO % 0.7 % (0-2.0); EOS % 1.4 % (0-4.5); HEMATOCRIT 38.5 % (32.4-45.2); HEMOGLOBIN 12.8 GM/dL (10.7-15.3); LYMPH % 14.1 % (8-40); MCH 30.2 pg (25.7-33.7); MCHC 33.4 g/dl (32.0-36.0); MEAN CELL VOLUME 90.5 fl (80-96); MEAN PLT VOLUME 7.2 fl (7.5-11.1); MONO % 4.9 % (3.8-10.2); NEUT % 78.9 % (42.8-82.8); PLATELET COUNT 227 10^3/uL (134-434); RBC 4.25 M/mm3 (3.60-5.2); RDW 14.5 % (11.6-15.6); WHITE BLOOD COUNT 5.3 K/mm3 (4.0-10.0)
[2022-08-04] MEDS ORDERED: BACITRACIN ZINC 15 GM TUBE TOPICAL OINTMENT TP ONE (12:28)
[2022-08-04] MEDS ORDERED: BACITRACIN ZINC 15 GM TUBE TOPICAL OINTMENT ONE (12:34)
[2022-08-04] MEDS ORDERED: DIPHTH,PERTUSS(ACELL),TET 0.5 ML DISP.SYRIN IM ONE ×2 (12:35→12:40)
[2022-08-04 12:36] LABS: INR 1.29 (0.83-1.09); PROTHROMBIN TIME (PATIENT) 14.9 SEC (9.7-13.0)
[2022-08-04 12:47] LABS: BLOOD UREA NITROGEN 9.4 mg/dL (7-18); CALCIUM 9.4 mg/dL (8.5-10.1)
[2022-08-04 12:51] LABS: CREATININE 0.8 mg/dL (0.55-1.3)
== END 2022-08-04 12:58 | disposition home or self-care (01) ==
LOC: JER 11:06
PROC: 3E0234Z Introduction of Serum, Toxoid and Vaccine into Muscle, Percutaneous Approach (ICD-10-PCS; principal; 2022-08-04)
DX: S61.011A Laceration without foreign body of right thumb without damage to nail, initial encounter (principal); W23.0XXA Caught, crushed, jammed, or pinched between moving objects, initial encounter
CPT/HCPCS: 36415; 73110-TC-RT-FY; 73130-TC-RT-FY; 80048; 85025; 85610; 86850; 86900; 86901; 90471; 90715; 99283-25

== ENCOUNTER 2023-07-09 10:47 | Inpatient (IN) | payer OTHER, BC ==
[2023-07-09 14:03] LABS: EPI CELLS 25 /uL (0-25.1); HYALINE CASTS 4 /uL (0-3.1); PH,URINE 5.5 (5.0-8.0); URINE APPEARANCE CLEAR; URINE BACTERIA 24 /uL (0-1359); URINE BILIRUBIN NEGATIVE (NEGATIVE); URINE COLOR YELLOW; URINE GLUCOSE (UA) NEGATIVE (NEGATIVE); URINE KETONE NEGATIVE (NEGATIVE); URINE LEUK ESTERASE TRACE (NEGATIVE); URINE NITRITE NEGATIVE (NEGATIVE); URINE PROTEIN 1+ (NEGATIVE); URINE RBC 39 /uL (0-23.9); URINE UROBILINOGEN 0.2 mg/dL (0.2-1.0); URINE WBC 14 /uL (0-25.8)
[2023-07-09 14:09] LABS: BASO % 0.6 % (0-2.0); EOS % 1.8 % (0-4.5); HEMATOCRIT 39.1 % (32.4-45.2); HEMOGLOBIN 13.5 GM/dL (10.7-15.3); LYMPH % 23.6 % (8-40); MCH 31.9 pg (25.7-33.7); MCHC 34.6 g/dl (32.0-36.0); MEAN CELL VOLUME 92.3 fl (80-96); MEAN PLT VOLUME 7.5 fl (7.5-11.1); MONO % 5.4 % (3.8-10.2); NEUT % 68.6 % (42.8-82.8); PLATELET COUNT 253 10^3/uL (134-434); RBC 4.24 M/mm3 (3.60-5.2); RDW 13.2 % (11.6-15.6); WHITE BLOOD COUNT 6.3 K/mm3 (4.0-10.0)
[2023-07-09 14:32] LABS: POTASSIUM 3.1 mmol/L (3.5-5.1)
[2023-07-09 14:37] LABS: ALBUMIN 4.8 g/dl (3.4-5.0)
[2023-07-09 14:38] LABS: BLOOD UREA NITROGEN 13.3 mg/dL (7-18); CALCIUM 10.2 mg/dL (8.5-10.1); CREATININE 0.9 mg/dL (0.55-1.3); MAGNESIUM 2.2 mg/dL (1.8-2.4)
[2023-07-09 14:40] LABS: BILIRUBIN,TOTAL 0.4 mg/dL (0.2-1); TOT PROT 8.2 g/dl (6.4-8.2)
[2023-07-09] MEDS ORDERED: KCL 10 MEQ IVPB 10 MEQ/100 ML INFUS.BAG IVPB ONE ×2 (15:31→17:24)
[2023-07-09] MEDS ORDERED: POTASSIUM CHLORIDE ORAL LIQUID 20 MEQ/15 ML ONE (15:31)
[2023-07-09] MEDS ORDERED: METOCLOPRAMIDE HCL INJECTION 10 MG/2 ML VIAL ONE ×2 (15:32→19:46)
[2023-07-09] MEDS: KCL 10 MEQ IVPB 10 MEQ/100 ML INFUS.BAG IVPB SCH (15:48)
[2023-07-09] MEDS: POTASSIUM CHLORIDE ORAL LIQUID 20 MEQ/15 ML PO ONE (15:48)
[2023-07-09] MEDS: METOCLOPRAMIDE HCL INJECTION 10 MG/2 ML VIAL IVPUSH ONE ×2 (15:48→19:58)
[2023-07-09] MEDS ORDERED: morphine SULFATE 4 MG/ML VIAL ONE (15:57)
[2023-07-09] MEDS: morphine CARPU-JECT 4 MG/1 ML DISP.SYRIN IVPUSH ONE (16:16)
[2023-07-09] MEDS ORDERED: ACETAMINOPHEN 1000 MG/100 ML BAG IVPB PRN (20:41)
[2023-07-09] MEDS: PANTOPRAZOLE SODIUM 40 MG VIAL IVPUSH SCH (22:08)
[2023-07-09] MEDS: APIXABAN 5 MG TABLET PO SCH (22:11)
[2023-07-09] MEDS ORDERED: oxyCODONE HCL 5 MG TABLET PO PRN (22:42)
[2023-07-09] MEDS ORDERED: ACETAMINOPHEN 325 MG TABLET (FP) PO PRN (22:43)
[2023-07-09 23:15] VITALS: BMI 25.1
[2023-07-10] MEDS: ACETAMINOPHEN/CAFFEINE/BUTALBITAL 1 TAB PO PRN (01:39)
[2023-07-10] MEDS: ONDANSETRON 4 MG/2 ML VIAL IVPUSH PRN (04:45)
[2023-07-10] MEDS: FUROSEMIDE 40 MG TABLET (FP) PO SCH (06:33)
[2023-07-10 09:08] LABS: POTASSIUM 3.1 mmol/L (3.5-5.1)
[2023-07-10 09:14] LABS: BLOOD UREA NITROGEN 10.2 mg/dL (7-18); CALCIUM 9.6 mg/dL (8.5-10.1)
[2023-07-10 09:17] LABS: CREATININE 0.8 mg/dL (0.55-1.3); PHOSPHOROUS 2.9 mg/dL (2.5-4.9)
[2023-07-10 09:18] LABS: BILIRUBIN,TOTAL 0.4 mg/dL (0.2-1); TOT PROT 6.9 g/dl (6.4-8.2)
[2023-07-10 09:59] LABS: HEMATOCRIT 34.9 % (32.4-45.2); HEMOGLOBIN 11.9 GM/dL (10.7-15.3); MCH 31.9 pg (25.7-33.7); MCHC 34.1 g/dl (32.0-36.0); MEAN CELL VOLUME 93.7 fl (80-96); MEAN PLT VOLUME 7.6 fl (7.5-11.1); PLATELET COUNT 194 10^3/uL (134-434); RBC 3.72 M/mm3 (3.60-5.2); RDW 13.2 % (11.6-15.6); WHITE BLOOD COUNT 5.7 K/mm3 (4.0-10.0)
[2023-07-10] MEDS ORDERED: ENOXAPARIN NA (PORCINE) 40 MG/0.4 ML DISP.SYRIN SQ SCH (10:00)
[2023-07-10] MEDS ORDERED: POTASSIUM CHLORIDE ORAL LIQUID 20 MEQ/15 ML PO ONE (10:00)
[2023-07-10] MEDS: SODIUM CHLORIDE 1,000 ML IV STA (10:01)
[2023-07-10] MEDS: DIGOXIN 0.125 MG TABLET PO SCH (10:03)
[2023-07-10] MEDS: ATENOLOL 25 MG TABLET (FP) PO SCH (10:04)
[2023-07-10] MEDS: SPIRONOLACTONE 25 MG TABLET PO SCH (10:04)
[2023-07-10] MEDS: METHIMAZOLE 5 MG TABLET PO SCH (10:04)
[2023-07-10] MEDS: KCL 10 MEQ IVPB 10 MEQ/100 ML INFUS.BAG IVPB SCH (10:28)
[2023-07-10] MEDS: MACITENTAN 10 MG PO SCH (11:24)
[2023-07-10] MEDS: [UNRECOGNIZED DRUG - OTHER] PO SCH (13:13)
[2023-07-10] MEDS: RIOCIGUAT 2 MG PO SCH (13:13)
[2023-07-10] MEDS: BISACODYL 5 MG TABLET.DR (FP) PO ONE (16:19)
[2023-07-10] MEDS: PEG 3350/NA SULF BICARB CL/KCL 4000 ML SOLN.RECON PO ONE (16:49)
[2023-07-10] MEDS: SODIUM CHLORIDE FOR INHALATION 3 ML VIAL.NEB IH ONE (20:50)
[2023-07-10] MEDS: ROSUVASTATIN CA 10 MG TABLET PO SCH (21:45)
[2023-07-11 08:39] LABS: BASO % 0.3 % (0-2.0); EOS % 3.2 % (0-4.5); HEMATOCRIT 33.3 % (32.4-45.2); HEMOGLOBIN 11.7 GM/dL (10.7-15.3); LYMPH % 20.5 % (8-40); MCHC 35.2 g/dl (32.0-36.0); MEAN CELL VOLUME 93.7 fl (80-96); MEAN PLT VOLUME 7.6 fl (7.5-11.1); MONO % 5.5 % (3.8-10.2); NEUT % 70.5 % (42.8-82.8); PLATELET COUNT 160 10^3/uL (134-434); RBC 3.56 M/mm3 (3.60-5.2); RDW 13.2 % (11.6-15.6)
[2023-07-11 08:46] LABS: INR 1.03 (0.83-1.09); PROTHROMBIN TIME (PATIENT) 11.6 SEC (9.7-13.0)
[2023-07-11 08:53] LABS: POTASSIUM 3.3 mmol/L (3.5-5.1)
[2023-07-11 08:59] LABS: CALCIUM 9.1 mg/dL (8.5-10.1)
[2023-07-11 09:00] LABS: ALBUMIN 3.8 g/dl (3.4-5.0)
[2023-07-11 09:02] LABS: TOT PROT 6.6 g/dl (6.4-8.2)
[2023-07-11 09:03] LABS: CREATININE 0.6 mg/dL (0.55-1.3)
[2023-07-11 09:06] LABS: BILIRUBIN,TOTAL 0.4 mg/dL (0.2-1)
[2023-07-11] MEDS ORDERED: FENTANYL CITRATE/PF 50 MCG/ML VIAL ONE (10:06)
[2023-07-11] MEDS ORDERED: MIDAZOLAM HCL 2 MG/2 ML SINGLE DOSE VIAL ONE (10:06)
[2023-07-11] MEDS: TETRACAINE/BENZOCAINE/BUTAMBEN 20 GM SPR TP ONE (10:46)
[2023-07-11 12:40] VITALS: BP 106/44; PULSE 68; RESP 16; TEMP 98
[2023-07-11] MEDS: POTASSIUM CHLORIDE ORAL LIQUID 20 MEQ/15 ML PO ONE (13:03)
== END 2023-07-11 14:34 | disposition home or self-care (01) | DRG 392 ==
LOC: JER 10:47 → JERBED 18:42 → J8W 21:29
PROVIDERS: ADMIT Internal Medicine; ATTEND Nurse Practitioner Family
PROC: 0DBL8ZX Excision of Transverse Colon, Via Natural or Artificial Opening Endoscopic, Diagnostic (ICD-10-PCS; 2023-07-11)
PROC: 0DBM8ZX Excision of Descending Colon, Via Natural or Artificial Opening Endoscopic, Diagnostic (ICD-10-PCS; 2023-07-11)
PROC: 0DBH8ZX Excision of Cecum, Via Natural or Artificial Opening Endoscopic, Diagnostic (ICD-10-PCS; 2023-07-11)
PROC: 0DB98ZX Excision of Duodenum, Via Natural or Artificial Opening Endoscopic, Diagnostic (ICD-10-PCS; 2023-07-11)
PROC: 0DB68ZX Excision of Stomach, Via Natural or Artificial Opening Endoscopic, Diagnostic (ICD-10-PCS; 2023-07-11)
PROC: 0DBK8ZX Excision of Ascending Colon, Via Natural or Artificial Opening Endoscopic, Diagnostic (ICD-10-PCS; principal; 2023-07-11 10:45)
DX: K29.60 Other gastritis without bleeding (principal); E86.0 Dehydration; K80.20 Calculus of gallbladder without cholecystitis without obstruction; E87.6 Hypokalemia; I27.20 Pulmonary hypertension, unspecified; I10 Essential (primary) hypertension; E03.9 Hypothyroidism, unspecified; J43.9 Emphysema, unspecified; R91.1 Solitary pulmonary nodule; G43.909 Migraine, unspecified, not intractable, without status migrainosus; D64.9 Anemia, unspecified; K29.70 Gastritis, unspecified, without bleeding; K63.5 Polyp of colon
CPT/HCPCS: 36415; 71045-TC-FY; 74177-TC; 76705-TC; 80053; 80162; 81003; 83690; 83735; 84100; 84443; 84484; 85025; 85027; 85610; 86850; 86900; 86901; 87040; 88305-TC; 93005; 93010; 99285-25; Q9967

== ENCOUNTER 2023-08-15 09:12 | Observation (INO) | payer OTHER, BC ==
[2023-08-15] MEDS ORDERED: ACETAMINOPHEN INJECTION 100 ML IVPB ONE (09:55)
[2023-08-15] MEDS ORDERED: MAG HYDROX/AL HYDROX/SIMETH 30 ML UNIT-DOSE CUP ONE (09:55)
[2023-08-15] MEDS ORDERED: ONDANSETRON 4 MG/2 ML VIAL ONE (09:56)
[2023-08-15] MEDS ORDERED: FAMOTIDINE 20 MG/50 ML IVPB 20 MG/50 ML MG IVPB ONE (09:56)
[2023-08-15] MEDS: SODIUM CHLORIDE 0.9% 500 ML INFUS.BAG IV ONE (10:15)
[2023-08-15] MEDS: ACETAMINOPHEN 1000 MG/100 ML BAG IVPB ONE (10:15)
[2023-08-15] MEDS: MAG HYDROX/AL HYDROX/SIMETH -MYLANTA- ORAL SUSPENSION PO ONE (10:15)
[2023-08-15] MEDS: FAMOTIDINE 20 MG/50 ML IVPB 20 MG/50 ML MG IVPB ONE (10:16)
[2023-08-15] MEDS: ONDANSETRON 4 MG/2 ML VIAL IVPUSH ONE (10:16)
[2023-08-15 10:18] LABS: BASO % 0.7 % (0-2.0); HEMOGLOBIN 13.9 GM/dL (10.7-15.3); LYMPH % 17.2 % (8-40); MCH 32.1 pg (25.7-33.7); MCHC 35.7 g/dl (32.0-36.0); MEAN PLT VOLUME 7.1 fl (7.5-11.1); MONO % 4.5 % (3.8-10.2); NEUT % 75.6 % (42.8-82.8); PLATELET COUNT 245 10^3/uL (134-434); RBC 4.34 M/mm3 (3.60-5.2); RDW 13.9 % (11.6-15.6); WHITE BLOOD COUNT 6.6 K/mm3 (4.0-10.0)
[2023-08-15 10:45] LABS: CHLORIDE 107 mmol/L (98-107); SODIUM 142 mmol/L (136-145)
[2023-08-15 10:46] LABS: CALCIUM 9.3 mg/dL (8.5-10.1)
[2023-08-15 10:47] LABS: ALBUMIN 4.8 g/dl (3.4-5.0); CO2 25 mmol/L (21-32); GLUCOSE,RANDOM 138 mg/dL (74-106); MAGNESIUM 1.9 mg/dL (1.8-2.4)
[2023-08-15 10:50] LABS: SGOT/AST 8 U/L (15-37); SGPT/ALT 15 U/L (13-61)
[2023-08-15 10:52] LABS: BILIRUBIN,TOTAL 0.5 mg/dL (0.2-1); TOT PROT 8.5 g/dl (6.4-8.2)
[2023-08-15 10:53] LABS: ALK PHOS 101 U/L (45-117)
[2023-08-15 11:11] LABS: ANION GAP 10 mmol/L (4-13); POTASSIUM 2.7 mmol/L (3.5-5.1)
[2023-08-15 11:40] LABS: PH,URINE 6.5 (5.0-8.0); URINE APPEARANCE CLEAR; URINE BILIRUBIN NEGATIVE (NEGATIVE); URINE COLOR YELLOW; URINE GLUCOSE (UA) NEGATIVE (NEGATIVE); URINE KETONE NEGATIVE (NEGATIVE); URINE LEUK ESTERASE NEGATIVE (NEGATIVE); URINE NITRITE NEGATIVE (NEGATIVE); URINE PROTEIN NEGATIVE (NEGATIVE); URINE UROBILINOGEN 0.2 mg/dL (0.2-1.0)
[2023-08-15] MEDS ORDERED: POTASSIUM CHLORIDE ORAL LIQUID 20 MEQ/15 ML ONE ×2 (11:41→12:07)
[2023-08-15] MEDS: POTASSIUM CHLORIDE ORAL LIQUID 20 MEQ/15 ML PO ONE ×2 (11:41→12:13)
[2023-08-15] MEDS ORDERED: METOCLOPRAMIDE HCL INJECTION 10 MG/2 ML VIAL ONE (12:07)
[2023-08-15] MEDS: METOCLOPRAMIDE HCL INJECTION 10 MG/2 ML VIAL IVPUSH ONE (12:13)
[2023-08-15] MEDS ORDERED: ACETAMINOPHEN/CAFFEINE/BUTALBITAL 1 TAB PO PRN (12:41)
[2023-08-15] MEDS ORDERED: SODIUM PHOSPHATE/NA BIPHOS 133 ML ENEMA RC PRN (12:49)
[2023-08-15] MEDS ORDERED: POLYETHYLENE GLYCOL (HEALTHYLAX) 3350 17 GM PACKET ONE (13:08)
[2023-08-15] MEDS ORDERED: oxyCODONE HCL 5 MG TABLET PO PRN (13:10)
[2023-08-15] MEDS ORDERED: ACETAMINOPHEN 325 MG TABLET (FP) PO PRN (13:11)
[2023-08-15] MEDS: POLYETHYLENE GLYCOL (HEALTHYLAX) 3350 17 GM PACKET PO SCH ×2 (13:39→22:01)
[2023-08-15 15:29] VITALS: BMI 23.6
[2023-08-15] MEDS: ONDANSETRON 4 MG/2 ML VIAL IVPUSH PRN (15:47)
[2023-08-15] MEDS: FUROSEMIDE 40 MG TABLET (FP) PO SCH (15:47)
[2023-08-15] MEDS: oxyCODONE HCL 5 MG TABLET PO PRN (16:29)
[2023-08-15] MEDS: POLYETHYLENE GLYCOL 3350 255 GM BTL PO ONE (16:29)
[2023-08-15 18:52] LABS: POTASSIUM 3.2 mmol/L (3.5-5.1)
[2023-08-15 18:53] LABS: CALCIUM 8.9 mg/dL (8.5-10.1)
[2023-08-15 18:54] LABS: BLOOD UREA NITROGEN 7.5 mg/dL (7-18)
[2023-08-15 18:57] LABS: CREATININE 0.9 mg/dL (0.55-1.3)
[2023-08-15] MEDS ORDERED: SENNOSIDES 8.6MG TABLET (FP) PO SCH (22:00)
[2023-08-15] MEDS: PANTOPRAZOLE 40 MG TABLET PO SCH (22:01)
[2023-08-15] MEDS: APIXABAN 5 MG TABLET PO SCH (22:01)
[2023-08-15] MEDS: PATIENT'S OWN MEDICATION (NON-FORMULARY) (Riociguat [Adempas] 2.5 MG Tablet) PO SCH (22:01)
[2023-08-16] MEDS: ACETAMINOPHEN 325 MG TABLET (FP) PO PRN (05:31)
[2023-08-16] MEDS: ATENOLOL 25 MG TABLET (FP) PO SCH (10:25)
[2023-08-16] MEDS: MACITENTAN 10 MG PO SCH (10:25)
[2023-08-16] MEDS: METHIMAZOLE 5 MG TABLET PO SCH (10:25)
[2023-08-16] MEDS: ROSUVASTATIN CA 10 MG TABLET PO SCH (10:27)
[2023-08-16] MEDS: SPIRONOLACTONE 25 MG TABLET PO SCH (10:27)
[2023-08-16] MEDS: POTASSIUM CHLORIDE ORAL LIQUID 20 MEQ/15 ML PO SCH (10:27)
[2023-08-16] MEDS: DIGOXIN 0.125 MG TABLET PO SCH (10:34)
[2023-08-16 10:35] VITALS: PULSE 92
[2023-08-16 10:36] VITALS: BP 140/71; RESP 17; TEMP 98.2
== END 2023-08-16 13:00 | disposition home or self-care (01) ==
LOC: JER 09:12 → JERBED 12:19 → J7W 14:49
PROVIDERS: ADMIT Internal Medicine; ATTEND Nurse Practitioner
PROC: 3E033NZ Introduction of Analgesics, Hypnotics, Sedatives into Peripheral Vein, Percutaneous Approach (ICD-10-PCS; principal; 2023-08-15)
PROC: 3E0337Z Introduction of Electrolytic and Water Balance Substance into Peripheral Vein, Percutaneous Approach (ICD-10-PCS; 2023-08-15)
PROC: 3E033NZ Introduction of Analgesics, Hypnotics, Sedatives into Peripheral Vein, Percutaneous Approach (ICD-10-PCS; 2023-08-15)
PROC: 3E033GC Introduction of Other Therapeutic Substance into Peripheral Vein, Percutaneous Approach (ICD-10-PCS; 2023-08-15)
DX: K59.00 Constipation, unspecified (principal); E87.6 Hypokalemia; R63.0 Anorexia; R63.30 Feeding difficulties, unspecified; Z99.81 Dependence on supplemental oxygen; E05.90 Thyrotoxicosis, unspecified without thyrotoxic crisis or storm; K21.9 Gastro-esophageal reflux disease without esophagitis; E78.00 Pure hypercholesterolemia, unspecified; Z86.711 Personal history of pulmonary embolism; J44.9 Chronic obstructive pulmonary disease, unspecified; Z72.0 Tobacco use; Z88.0 Allergy status to penicillin
CPT/HCPCS: 36415; 74176-TC; 80048; 80053; 80162; 81003; 83690; 83735; 85025; 87086; 93005; 93010; 96365; 96375; 96376; 99285-25; G0378; J0131

== ENCOUNTER 2023-09-08 05:09 | Day surgery (SDC) | payer OTHER, BC ==
[2023-09-03 16:05] VITALS: BMI 24.3
[2023-09-08] MEDS ORDERED: MIDAZOLAM HCL 2 MG/2 ML SINGLE DOSE VIAL ONE ×2 (12:26→13:53)
[2023-09-08] MEDS ORDERED: ceFAZolin SODIUM 1 GM VIAL ONE (12:51)
[2023-09-08] MEDS ORDERED: KETAMINE HCL 200 MG/20 ML VIAL ONE (12:52)
[2023-09-08] MEDS ORDERED: ONDANSETRON 4 MG/2 ML VIAL ONE (12:52)
[2023-09-08] MEDS ORDERED: PROPOFOL 20 ML ONE ×3 (12:52→14:27)
[2023-09-08] MEDS ORDERED: ACETAMINOPHEN 325 MG TABLET (FP) PO PRN (12:55)
[2023-09-08] MEDS ORDERED: ONDANSETRON 4 MG/2 ML VIAL IVPUSH PRN (12:55)
[2023-09-08] MEDS ORDERED: LACTATED RINGERS SOLUTION 1,000 ML IV SCH (13:00)
[2023-09-08] MEDS: ceFAZolin SODIUM 1 GM VIAL IVPB ONE (13:15)
[2023-09-08] MEDS: oxyCODONE HCL 5 MG TABLET PO PRN (16:08)
[2023-09-08] MEDS ORDERED: oxyCODONE HCL 5 MG TABLET ONE (16:08)
[2023-09-08] MEDS: POLYETHYLENE GLYCOL (HEALTHYLAX) 3350 17 GM PACKET PO SCH (17:34)
[2023-09-08] MEDS ORDERED: ALBUTEROL SO4 0.083% IH SOL 2.5 MG/3 ML VIAL.NEB. NEB PRN (17:37)
[2023-09-09 06:47] VITALS: RESP 19
[2023-09-09] MEDS ORDERED: ceFAZolin 2 GRAM PREMIX BAG IVPB ONE (08:22)
[2023-09-09] MEDS: CEFAZOLIN SODIUM 2 GM in DEXTROSE 5%-WATER 100 ML IVPB ONE (09:31)
[2023-09-09] MEDS: APIXABAN 5 MG TABLET PO SCH (09:37)
[2023-09-09] MEDS: ROSUVASTATIN CA 5 MG TABLET PO SCH (09:37)
[2023-09-09] MEDS: SPIRONOLACTONE 25 MG TABLET PO SCH (09:37)
[2023-09-09] MEDS: DIGOXIN 0.125 MG TABLET PO SCH (09:37)
[2023-09-09 09:38] VITALS: PULSE 87
[2023-09-09] MEDS: ATENOLOL 25 MG TABLET (FP) PO SCH (09:38)
[2023-09-09] MEDS: FUROSEMIDE 40 MG TABLET (FP) PO SCH (09:38)
[2023-09-09] MEDS: PANTOPRAZOLE 40 MG TABLET PO SCH (09:38)
[2023-09-09] MEDS: ACETAMINOPHEN 1000 MG/100 ML BAG IVPB ONE (12:08)
[2023-09-09 14:05] VITALS: BP 122/64; TEMP 98.1
== END 2023-09-09 14:21 | disposition home or self-care (01) ==
LOC: JASUSAT 05:09 → J4W 17:28 → JASUSAT 09-09 14:21
PROVIDERS: ATTEND Orthopaedic Surgery
PROC: 0LQ10ZZ Repair Right Shoulder Tendon, Open Approach (ICD-10-PCS; 2023-09-08)
PROC: 0RRJ0J6 Replacement of Right Shoulder Joint with Synthetic Substitute, Humeral Surface, Open Approach (ICD-10-PCS; principal; 2023-09-08 12:00)
DX: M87.9 Osteonecrosis, unspecified (principal); M19.011 Primary osteoarthritis, right shoulder
CPT/HCPCS: 23412; 23470; C1713; 73030-TC-RT-FY; 88305-TC; 88311-TC; 94760; C1776; C1889; J0131; J1100

== ENCOUNTER 2024-01-15 17:30 | Inpatient (IN) | payer OTHER, BC ==
[2024-01-15 18:18] LABS: BASO % 0.3 % (0-2.0); EOS % 1.5 % (0-4.5); HEMATOCRIT 35.6 % (32.4-45.2); HEMOGLOBIN 11.9 GM/dL (10.7-15.3); LYMPH % 16.8 % (8-40); MCH 29.9 pg (25.7-33.7); MCHC 33.4 g/dl (32.0-36.0); MEAN CELL VOLUME 89.5 fl (80-96); MEAN PLT VOLUME 6.7 fl (7.5-11.1); MONO % 3.5 % (3.8-10.2); NEUT % 77.9 % (42.8-82.8); PLATELET COUNT 208 10^3/uL (134-434); RBC 3.98 M/mm3 (3.60-5.2); RDW 14.5 % (11.6-15.6); WHITE BLOOD COUNT 5.7 K/mm3 (4.0-10.0)
[2024-01-15 18:25] LABS: INR 1.09 (0.83-1.09); PROTHROMBIN TIME (PATIENT) 12.5 SEC (9.7-13.0)
[2024-01-15 18:27] LABS: ACTIVATED PTT 25.4 SECONDS (25.2-36.5)
[2024-01-15 18:38] LABS: CHLORIDE 110 mmol/L (98-107); SODIUM 143 mmol/L (136-145)
[2024-01-15 18:39] LABS: CALCIUM 9.5 mg/dL (8.5-10.1)
[2024-01-15 18:41] LABS: ALBUMIN 4.1 g/dl (3.4-5.0); BLOOD UREA NITROGEN 8.4 mg/dL (7-18); CO2 25 mmol/L (21-32); GLUCOSE,RANDOM 103 mg/dL (74-106); MAGNESIUM 2.2 mg/dL (1.8-2.4)
[2024-01-15 18:44] LABS: CREATININE 0.8 mg/dL (0.55-1.3); PHOSPHOROUS 2.6 mg/dL (2.5-4.9); SGOT/AST 13 U/L (15-37); SGPT/ALT 18 U/L (13-61)
[2024-01-15 18:45] LABS: ANION GAP 9 mmol/L (4-13); BILIRUBIN,TOTAL 0.3 mg/dL (0.2-1); POTASSIUM 2.9 mmol/L (3.5-5.1); TOT PROT 7.2 g/dl (6.4-8.2)
[2024-01-15 18:47] LABS: ALK PHOS 72 U/L (45-117)
[2024-01-15] MEDS ORDERED: ACETAMINOPHEN INJECTION 100 ML ONE (19:23)
[2024-01-15] MEDS ORDERED: POTASSIUM CHLORIDE ORAL LIQUID 20 MEQ/15 ML ONE (19:23)
[2024-01-15] MEDS ORDERED: LIDOCAINE 5% TOPICAL PATCH ONE (19:23)
[2024-01-15] MEDS: POTASSIUM CHLORIDE ORAL LIQUID 20 MEQ/15 ML PO ONE (19:31)
[2024-01-15] MEDS: LIDOCAINE 4% PATCH TP ONE (19:32)
[2024-01-15] MEDS: ACETAMINOPHEN 1000 MG/100 ML BAG IVPB ONE (19:32)
[2024-01-15] MEDS ORDERED: KCL 10 MEQ IVPB 20 MEQ/200 ML INFUS.BAG IVPB ONE (19:36)
[2024-01-15] MEDS: KCL 10 MEQ IVPB 10 MEQ/100 ML INFUS.BAG IVPB SCH ×2 (19:48→21:55)
[2024-01-15] MEDS: SODIUM CHLORIDE 0.9% 500 ML INFUS.BAG IV ONE (19:48)
[2024-01-15] MEDS ORDERED: KCL 10 MEQ IVPB 10 MEQ/100 ML INFUS.BAG IVPB ONE (21:47)
[2024-01-15] MEDS: LIDOCAINE PATCH REMOVAL MC SCH (22:01)
[2024-01-15] MEDS ORDERED: oxyCODONE HCL 5 MG TABLET ONE (22:56)
[2024-01-15] MEDS: oxyCODONE HCL 5 MG TABLET PO ONE (23:01)
[2024-01-15 23:27] LABS: POTASSIUM 3.3 mmol/L (3.5-5.1)
[2024-01-15 23:30] LABS: ALBUMIN 3.8 g/dl (3.4-5.0); BLOOD UREA NITROGEN 8.2 mg/dL (7-18); CALCIUM 8.7 mg/dL (8.5-10.1)
[2024-01-15 23:34] LABS: BILIRUBIN,TOTAL 0.4 mg/dL (0.2-1); CREATININE 0.7 mg/dL (0.55-1.3); PHOSPHOROUS 2.3 mg/dL (2.5-4.9); TOT PROT 6.4 g/dl (6.4-8.2)
[2024-01-16] MEDS: KCL 10 MEQ IVPB 10 MEQ/100 ML INFUS.BAG IVPB SCH (00:15)
[2024-01-16] MEDS ORDERED: ACETAMINOPHEN 325 MG TABLET (FP) PO PRN (02:07)
[2024-01-16] MEDS ORDERED: MELATONIN 5 MG TABLETS PO PRN ×2 (02:08→13:14)
[2024-01-16] MEDS: ACETAMINOPHEN 325 MG TABLET (FP) PO PRN (02:15)
[2024-01-16] MEDS: MUPIROCIN 2% TOPICAL OINTMENT FOR DECOLONIZATION NS SCH (02:18)
[2024-01-16 06:31] LABS: BASO % 0.6 % (0-2.0); EOS % 1.4 % (0-4.5); HEMATOCRIT 32.6 % (32.4-45.2); HEMOGLOBIN 10.9 GM/dL (10.7-15.3); LYMPH % 16.7 % (8-40); MCHC 33.4 g/dl (32.0-36.0); MEAN CELL VOLUME 89.9 fl (80-96); MEAN PLT VOLUME 6.9 fl (7.5-11.1); MONO % 3.4 % (3.8-10.2); NEUT % 77.9 % (42.8-82.8); PLATELET COUNT 190 10^3/uL (134-434); RBC 3.63 M/mm3 (3.60-5.2); RDW 14.3 % (11.6-15.6)
[2024-01-16 06:40] LABS: INR 1.07 (0.83-1.09); PROTHROMBIN TIME (PATIENT) 12.3 SEC (9.7-13.0)
[2024-01-16 06:42] LABS: POTASSIUM 3.3 mmol/L (3.5-5.1)
[2024-01-16 06:43] LABS: ACTIVATED PTT 27.4 SECONDS (25.2-36.5)
[2024-01-16] MEDS ORDERED: oxyCODONE HCL 5 MG TABLET PO PRN (06:45)
[2024-01-16 06:46] LABS: ALBUMIN 3.5 g/dl (3.4-5.0); CALCIUM 8.6 mg/dL (8.5-10.1)
[2024-01-16 06:48] LABS: BLOOD UREA NITROGEN 6.6 mg/dL (7-18)
[2024-01-16 06:50] LABS: PHOSPHOROUS 1.7 mg/dL (2.5-4.9)
[2024-01-16] MEDS: LIDOCAINE PATCH REMOVAL MC ONE (07:03)
[2024-01-16 07:06] LABS: CREATININE 0.6 mg/dL (0.55-1.3)
[2024-01-16 07:07] LABS: BILIRUBIN,TOTAL 0.4 mg/dL (0.2-1); TOT PROT 6.2 g/dl (6.4-8.2)
[2024-01-16] MEDS: ACETAMINOPHEN/CAFFEINE/BUTALBITAL 1 TAB PO ONE ×2 (07:18→16:52)
[2024-01-16] MEDS ORDERED: POTASSIUM PHOSPHATE 30 MM in SODIUM CHLORIDE 250 ML IVPB ONE (08:00)
[2024-01-16] MEDS: FOLIC ACID 1 MG TABLET (FP) PO SCH (09:12)
[2024-01-16] MEDS: MACITENTAN 10 MG PO SCH (09:12)
[2024-01-16] MEDS: NAPH,MB-DB/K PH,MBDB POWDER PACKET PO SCH ×3 (09:12→22:25)
[2024-01-16] MEDS: METHIMAZOLE 5 MG TABLET PO SCH (09:12)
[2024-01-16] MEDS: PANTOPRAZOLE 40 MG TABLET PO SCH (09:12)
[2024-01-16] MEDS: POLYETHYLENE GLYCOL (HEALTHYLAX) 3350 17 GM PACKET PO SCH ×2 (09:12→22:29)
[2024-01-16] MEDS: PATIENT'S OWN MEDICATION (NON-FORMULARY) (Riociguat [Adempas] 2.5 MG Tablet) PO SCH (09:13)
[2024-01-16] MEDS ORDERED: POLYETHYLENE GLYCOL (HEALTHYLAX) 3350 17 GM PACKET PO SCH (10:00)
[2024-01-16 10:23] LABS: URINE APPEARANCE CLEAR; URINE BILIRUBIN NEGATIVE (NEGATIVE); URINE COLOR YELLOW; URINE GLUCOSE (UA) NEGATIVE (NEGATIVE); URINE KETONE TRACE (NEGATIVE); URINE LEUK ESTERASE NEGATIVE (NEGATIVE); URINE NITRITE NEGATIVE (NEGATIVE); URINE PROTEIN TRACE (NEGATIVE); URINE UROBILINOGEN 0.2 mg/dL (0.2-1.0)
[2024-01-16] MEDS ORDERED: ACETAMINOPHEN/CAFFEINE/BUTALBITAL 1 TAB PO PRN (10:47)
[2024-01-16] MEDS ORDERED: ONDANSETRON 4 MG/2 ML VIAL IVPUSH PRN (10:50)
[2024-01-16] MEDS: POTASSIUM PHOSPHATE 30 MM in SODIUM CHLORIDE 250 ML IVPB ONE (11:02)
[2024-01-16] MEDS: DIGOXIN 0.125 MG TABLET PO SCH (11:09)
[2024-01-16] MEDS: SPIRONOLACTONE 25 MG TABLET PO SCH (11:09)
[2024-01-16] MEDS: CHOLECALCIFEROL (VIT D3) 400 UNIT (10 MCG) TABLET PO SCH (11:10)
[2024-01-16] MEDS: ATENOLOL 25 MG TABLET (FP) PO SCH ×2 (11:10→14:10)
[2024-01-16] MEDS: FUROSEMIDE 40 MG TABLET (FP) PO SCH (11:17)
[2024-01-16] MEDS ORDERED: FOLIC ACID 1 MG TABLET (FP) PO SCH (11:30)
[2024-01-16] MEDS ORDERED: FUROSEMIDE 40 MG TABLET (FP) PO SCH (11:30)
[2024-01-16] MEDS ORDERED: PANTOPRAZOLE 40 MG TABLET PO SCH (11:30)
[2024-01-16 12:53] VITALS: BMI 23.3
[2024-01-16] MEDS: RIOCIGUAT 2 MG PO SCH (16:53)
[2024-01-16] MEDS: ONDANSETRON 4 MG/2 ML VIAL IVPUSH PRN (20:20)
[2024-01-16] MEDS ORDERED: MUPIROCIN 2% TOPICAL OINTMENT FOR DECOLONIZATION NS SCH (22:00)
[2024-01-16] MEDS ORDERED: CHLORHEXIDINE GLUCONATE 4% CLEANSER FOR DECOLONIZATION TP SCH ×2 (22:00)
[2024-01-16] MEDS ORDERED: ROSUVASTATIN CA 10 MG TABLET PO SCH (22:00)
[2024-01-16] MEDS: ROSUVASTATIN CA 10 MG TABLET PO SCH (22:26)
[2024-01-16] MEDS: ACETAMINOPHEN/CAFFEINE/BUTALBITAL 1 TAB PO PRN (22:26)
[2024-01-17] MEDS: METHIMAZOLE 5 MG TABLET PO SCH (09:44)
[2024-01-17] MEDS: FOLIC ACID 1 MG TABLET (FP) PO SCH (09:44)
[2024-01-17] MEDS: DIGOXIN 0.125 MG TABLET PO SCH (09:44)
[2024-01-17] MEDS: SPIRONOLACTONE 25 MG TABLET PO SCH (09:46)
[2024-01-17] MEDS: PANTOPRAZOLE 40 MG TABLET PO SCH (09:46)
[2024-01-17] MEDS: CHOLECALCIFEROL (VIT D3) 400 UNIT (10 MCG) TABLET PO SCH (09:47)
[2024-01-17] MEDS: MACITENTAN 10 MG PO SCH (09:48)
[2024-01-17 11:21] LABS: CHLORIDE 109 mmol/L (98-107); SODIUM 142 mmol/L (136-145)
[2024-01-17 11:24] LABS: BLOOD UREA NITROGEN 6.2 mg/dL (7-18); CO2 26 mmol/L (21-32); GLUCOSE,RANDOM 135 mg/dL (74-106)
[2024-01-17 11:25] LABS: ANION GAP 7 mmol/L (4-13); POTASSIUM 2.9 mmol/L (3.5-5.1)
[2024-01-17 11:27] LABS: CREATININE 0.7 mg/dL (0.55-1.3)
[2024-01-17] MEDS: KCL 10 MEQ IVPB 10 MEQ/100 ML INFUS.BAG IVPB SCH (12:20)
[2024-01-17] MEDS: POTASSIUM CHLORIDE TABS 20 MEQ TABLET.ER (FP) PO ONE (12:20)
[2024-01-17 14:58] LABS: MAGNESIUM 1.9 mg/dL (1.8-2.4)
[2024-01-17 15:03] LABS: PHOSPHOROUS 3.2 mg/dL (2.5-4.9)
[2024-01-17] MEDS: FAMOTIDINE 20 MG TABLET PO ONE (23:09)
[2024-01-18 09:32] LABS: HEMATOCRIT 34.3 % (32.4-45.2); HEMOGLOBIN 11.5 GM/dL (10.7-15.3); MCH 29.8 pg (25.7-33.7); MCHC 33.5 g/dl (32.0-36.0); MEAN CELL VOLUME 88.8 fl (80-96); MEAN PLT VOLUME 7.3 fl (7.5-11.1); PLATELET COUNT 191 10^3/uL (134-434); RBC 3.86 M/mm3 (3.60-5.2); RDW 14.5 % (11.6-15.6); WHITE BLOOD COUNT 5.9 K/mm3 (4.0-10.0)
[2024-01-18 09:46] LABS: POTASSIUM 3.4 mmol/L (3.5-5.1)
[2024-01-18 09:48] LABS: CALCIUM 9.3 mg/dL (8.5-10.1)
[2024-01-18 09:49] LABS: BLOOD UREA NITROGEN 9.2 mg/dL (7-18)
[2024-01-18 09:52] LABS: CREATININE 0.6 mg/dL (0.55-1.3)
[2024-01-18] MEDS: oxyCODONE HCL 5 MG TABLET PO PRN (12:42)
[2024-01-19] MEDS: POTASSIUM CHLORIDE TABS 20 MEQ TABLET.ER (FP) PO ONE (10:43)
[2024-01-19 12:03] LABS: BASO % 0.3 % (0-2.0); EOS % 2.9 % (0-4.5); HEMOGLOBIN 11.9 GM/dL (10.7-15.3); LYMPH % 13.5 % (8-40); MCH 29.6 pg (25.7-33.7); MEAN CELL VOLUME 89.7 fl (80-96); MEAN PLT VOLUME 7.4 fl (7.5-11.1); MONO % 6.5 % (3.8-10.2); NEUT % 76.8 % (42.8-82.8); PLATELET COUNT 206 10^3/uL (134-434); RBC 4.02 M/mm3 (3.60-5.2); RDW 14.3 % (11.6-15.6); WHITE BLOOD COUNT 6.1 K/mm3 (4.0-10.0)
[2024-01-19 12:21] LABS: POTASSIUM 3.2 mmol/L (3.5-5.1)
[2024-01-19 12:26] LABS: BLOOD UREA NITROGEN 12.3 mg/dL (7-18); CALCIUM 9.3 mg/dL (8.5-10.1)
[2024-01-19 12:27] LABS: ALBUMIN 3.9 g/dl (3.4-5.0)
[2024-01-19 12:30] LABS: CREATININE 0.8 mg/dL (0.55-1.3)
[2024-01-19 12:31] LABS: BILIRUBIN,TOTAL 0.4 mg/dL (0.2-1)
[2024-01-19 12:32] LABS: TOT PROT 7.2 g/dl (6.4-8.2)
[2024-01-19] MEDS: KCL 10 MEQ IVPB 10 MEQ/100 ML INFUS.BAG IVPB SCH (14:19)
[2024-01-19] MEDS: FAMOTIDINE 20 MG TABLET PO ONE (16:10)
[2024-01-19] MEDS ORDERED: ACETAMINOPHEN/CAFFEINE/BUTALBITAL 1 TAB PO ONE (19:15)
[2024-01-19] MEDS: ACETAMINOPHEN/CAFFEINE/BUTALBITAL 1 TAB PO PRN (20:00)
[2024-01-20 08:56] LABS: BASO % 0.2 % (0-2.0); EOS % 4.6 % (0-4.5); HEMATOCRIT 31.8 % (32.4-45.2); HEMOGLOBIN 10.7 GM/dL (10.7-15.3); LYMPH % 18.4 % (8-40); MCH 30.2 pg (25.7-33.7); MCHC 33.7 g/dl (32.0-36.0); MEAN CELL VOLUME 89.5 fl (80-96); MEAN PLT VOLUME 7.3 fl (7.5-11.1); MONO % 6.2 % (3.8-10.2); NEUT % 70.6 % (42.8-82.8); PLATELET COUNT 186 10^3/uL (134-434); RBC 3.55 M/mm3 (3.60-5.2); RDW 14.8 % (11.6-15.6); WHITE BLOOD COUNT 4.4 K/mm3 (4.0-10.0)
[2024-01-20 09:14] LABS: CALCIUM 9.2 mg/dL (8.5-10.1)
[2024-01-20 09:15] LABS: ALBUMIN 3.5 g/dl (3.4-5.0); BLOOD UREA NITROGEN 12.6 mg/dL (7-18); MAGNESIUM 2.2 mg/dL (1.8-2.4)
[2024-01-20 09:18] LABS: CREATININE 0.5 mg/dL (0.55-1.3)
[2024-01-20 09:20] LABS: BILIRUBIN,TOTAL 0.4 mg/dL (0.2-1); TOT PROT 6.4 g/dl (6.4-8.2)
[2024-01-20] MEDS: FAMOTIDINE 20 MG TABLET PO SCH (09:52)
[2024-01-20] MEDS: POTASSIUM CHLORIDE TABS 10 MEQ TABLET.ER (FP) PO SCH (09:52)
[2024-01-20] MEDS: FLUTICASONE PROP 0.05% 16 GM NASAL SPRAY NS SCH (11:28)
[2024-01-20] MEDS: PANTOPRAZOLE 20 MG TABLET PO ONE (14:32)
[2024-01-21 09:31] VITALS: BP 104/51; RESP 17; TEMP 98.6
[2024-01-21 09:36] VITALS: PULSE 89
== END 2024-01-21 12:17 | disposition home or self-care (01) | DRG 86 ==
LOC: JER 17:30 → JERBED 19:29 → JICU 01-16 00:24 → J8W 01-16 12:36
PROVIDERS: ADMIT Internal Medicine Pulmonary Disease; ATTEND Nurse Practitioner Family
DX: S06.5X0A Traumatic subdural hemorrhage without loss of consciousness, initial encounter (principal); I50.32 Chronic diastolic (congestive) heart failure; J96.11 Chronic respiratory failure with hypoxia; J84.9 Interstitial pulmonary disease, unspecified; E78.5 Hyperlipidemia, unspecified; K21.9 Gastro-esophageal reflux disease without esophagitis; G43.909 Migraine, unspecified, not intractable, without status migrainosus; E05.90 Thyrotoxicosis, unspecified without thyrotoxic crisis or storm; E83.39 Other disorders of phosphorus metabolism; E87.6 Hypokalemia; K59.00 Constipation, unspecified; R91.8 Other nonspecific abnormal finding of lung field; M12.811 Other specific arthropathies, not elsewhere classified, right shoulder; I27.21 Secondary pulmonary arterial hypertension; I11.0 Hypertensive heart disease with heart failure; W18.30XA Fall on same level, unspecified, initial encounter; Y93.9 Activity, unspecified; Y92.099 Unspecified place in other non-institutional residence as the place of occurrence of the external cause; Y99.9 Unspecified external cause status; Z87.11 Personal history of peptic ulcer disease
CPT/HCPCS: 36415; 70450-TC; 71045-TC-FY; 72125-TC; 80048; 80053; 80162; 81003; 82962; 83735; 84100; 84439; 84443; 84481; 84484; 85025; 85027; 85610; 85730; 87086; 87481; 93005; 93010; 97116-GP; 97161-GP; 99285-25; J0131

== ENCOUNTER 2024-06-20 09:21 | Emergency (ER) | payer OTHER, BC ==
[2024-06-20 09:38] VITALS: RESP 18; TEMP 98.7; BMI 24.6
[2024-06-20] MEDS ORDERED: ONDANSETRON 4 MG/2 ML VIAL ONE (11:12)
[2024-06-20] MEDS ORDERED: ACETAMINOPHEN INJECTION 100 ML ONE (11:12)
[2024-06-20] MEDS ORDERED: METOCLOPRAMIDE HCL INJECTION 10 MG/2 ML VIAL ONE (11:12)
[2024-06-20 11:17] LABS: ABSOLUTE IMMATURE GRANULOCYTES 0.02 x10^3/uL (0.0-0.031); BASOPHILS # 0.02 x10^3/uL (0.01-0.08); EOSINOPHILS # 0.06 x10^3/uL (0.04-0.36); HEMATOCRIT 38.2 % (34.1-44.9); HEMOGLOBIN 12.5 g/dL (11.2-15.7); MCHC 32.7 g/dl (32.2-35.5); MEAN CELL VOLUME 91.8 fl (79.4-94.8); MEAN PLT VOLUME 8.9 fl (9.4-12.3); MONOCYTE # 0.25 x10^3/uL (0.24-0.86); MONOCYTE % 4.3 % (4.7-12.5); PLATELET COUNT 224 x10^3/uL (182-369); RDW 14.7 % (12.4-16.6)
[2024-06-20 11:25] LABS: INR 1.47 (0.83-1.09); PROTHROMBIN TIME (PATIENT) 16.2 SEC (9.7-13.0)
[2024-06-20 11:35] LABS: POTASSIUM 3.6 mmol/L (3.5-5.1)
[2024-06-20 11:38] LABS: ALBUMIN 4.6 g/dl (3.4-5.0)
[2024-06-20] MEDS: METOCLOPRAMIDE HCL INJECTION 10 MG/2 ML VIAL IVPUSH ONE (11:38)
[2024-06-20] MEDS: ONDANSETRON 4 MG/2 ML VIAL IVPUSH ONE (11:38)
[2024-06-20 11:43] LABS: BILIRUBIN,TOTAL 0.4 mg/dL (0.2-1); TOT PROT 8.3 g/dl (6.4-8.2)
[2024-06-20 11:46] LABS: N-TERMINAL BNP 166.4 pg/ml (5-125)
[2024-06-20] MEDS ORDERED: ACETAMINOPHEN/CAFFEINE/BUTALBITAL 1 TAB ONE (11:57)
[2024-06-20] MEDS: ACETAMINOPHEN/CAFFEINE/BUTALBITAL 1 TAB PO ONE (11:59)
[2024-06-20] MEDS: SODIUM CHLORIDE 0.9% 500 ML INFUS.BAG IV ONE (12:13)
[2024-06-20] MEDS: SODIUM CHLORIDE 500 ML IV STA (12:13)
[2024-06-20] MEDS: ACETAMINOPHEN 1000 MG/100 ML BAG IVPB ONE (12:13)
[2024-06-20 15:41] VITALS: BP 129/65; PULSE 54
== END 2024-06-20 16:06 | disposition home or self-care (01) ==
LOC: JER 09:21
PROC: 3E033NZ Introduction of Analgesics, Hypnotics, Sedatives into Peripheral Vein, Percutaneous Approach (ICD-10-PCS; principal; 2024-06-20)
PROC: 3E033GC Introduction of Other Therapeutic Substance into Peripheral Vein, Percutaneous Approach (ICD-10-PCS; 2024-06-20)
PROC: 3E033GC Introduction of Other Therapeutic Substance into Peripheral Vein, Percutaneous Approach (ICD-10-PCS; 2024-06-20)
PROC: 3E0337Z Introduction of Electrolytic and Water Balance Substance into Peripheral Vein, Percutaneous Approach (ICD-10-PCS; 2024-06-20)
DX: S80.11XA Contusion of right lower leg, initial encounter (principal); S80.12XA Contusion of left lower leg, initial encounter; R11.2 Nausea with vomiting, unspecified; R51.9 Headache, unspecified; R42 Dizziness and giddiness; X58.XXXA Exposure to other specified factors, initial encounter
CPT/HCPCS: 0241U-QW; 36415; 70450-TC; 70551-TC; 71045-TC-FY; 80053; 83735; 83880; 84484; 85025; 85610; 85730; 93005; 93010; 99285-25

== ENCOUNTER 2024-12-07 17:45 | Observation (INO) | payer OTHER, BC ==
[2024-12-08] MEDS: ACETAMINOPHEN 500 MG TABLET (FP) PO SCH (01:00)
[2024-12-08] MEDS: APIXABAN 5 MG TABLET PO SCH (01:00)
[2024-12-08] MEDS: MORPHINE SULFATE 2 MG/ML SYRINGE IVPUSH PRN (01:01)
[2024-12-08 02:54] VITALS: RESP 18
[2024-12-08 03:44] VITALS: BMI 18.6
[2024-12-08] MEDS: FUROSEMIDE 40 MG TABLET (FP) PO SCH (05:07)
[2024-12-08] MEDS: PANTOPRAZOLE 40 MG TABLET PO SCH (06:33)
[2024-12-08] MEDS: ATENOLOL 25 MG TABLET (FP) PO SCH (06:33)
[2024-12-08] MEDS: KETOROLAC TROMETHAMINE 15 MG/ML VIAL IVPB PRN (06:33)
[2024-12-08] MEDS: ROSUVASTATIN CA 10 MG TABLET PO SCH (06:33)
[2024-12-08] MEDS: METHIMAZOLE 5 MG TABLET PO SCH (06:35)
[2024-12-08] MEDS ORDERED: MACITENTAN 10 MG PO SCH (07:00)
[2024-12-08] MEDS ORDERED: ROSUVASTATIN CA 5 MG TABLET PO SCH (07:00)
[2024-12-08] MEDS: METOCLOPRAMIDE HCL 10 MG TABLET (FP) PO PRN (08:57)
[2024-12-08 09:15] VITALS: BP 110/54; PULSE 70; TEMP 97.7
[2024-12-08 09:31] LABS: ABSOLUTE IMMATURE GRANULOCYTES 0.01 x10^3/uL (0.0-0.031); BASOPHILS # 0.02 x10^3/uL (0.01-0.08); EOSINOPHIL % 1.6 % (0.7-5.8); EOSINOPHILS # 0.10 x10^3/uL (0.04-0.36); MCHC 31.8 g/dl (32.2-35.5); MEAN CELL VOLUME 92.3 fl (79.4-94.8); MEAN PLT VOLUME 9.2 fl (9.4-12.3); MONOCYTE # 0.26 x10^3/uL (0.24-0.86); MONOCYTE % 4.0 % (4.7-12.5); RDW 14.6 % (12.4-16.6)
[2024-12-08] MEDS ORDERED: FUROSEMIDE 40 MG TABLET (FP) PO SCH (10:00)
[2024-12-08] MEDS ORDERED: ENOXAPARIN NA (PORCINE) 40 MG/0.4 ML DISP.SYRIN SQ SCH (10:00)
[2024-12-08] MEDS ORDERED: RIOCIGUAT 2 MG PO SCH (10:00)
[2024-12-08 10:03] LABS: GLUCOSE,RANDOM 164.0 mg/dL (74-106)
[2024-12-08 10:04] LABS: TOT PROT 7.9 g/dl (6.4-8.2)
[2024-12-08 10:05] LABS: CO2 21.0 mmol/L (21-32)
[2024-12-08 10:06] LABS: ALK PHOS 103.0 U/L (40-150)
[2024-12-08] MEDS: SPIRONOLACTONE 25 MG TABLET PO SCH (10:07)
[2024-12-08] MEDS: CHOLECALCIFEROL (VIT D3) 1,000 UNIT (25 MCG) TABLET PO SCH (10:07)
[2024-12-08] MEDS: FOLIC ACID 1 MG TABLET (FP) PO SCH (10:07)
[2024-12-08 10:09] LABS: CREATININE 1.1 mg/dL (0.55-1.3); SGOT/AST 25.0 U/L (5-34); SGPT/ALT 16.0 U/L (0-55)
[2024-12-08] MEDS: POTASSIUM CHLORIDE ORAL LIQUID 20 MEQ/15 ML PO ONE (11:38)
[2024-12-08] MEDS ORDERED: SENNOSIDES/DOCUSATE COMBO (SENNA PLUS) TABLET (UD) PO SCH (22:00)
== END 2024-12-08 11:54 | disposition home or self-care (01) ==
LOC: JER 17:45 → JERBED 20:12 → J5S 12-08 00:08
PROVIDERS: ADMIT Student in an Organized Health Care Education/Training Program
PROC: 3E0333Z Introduction of Anti-inflammatory into Peripheral Vein, Percutaneous Approach (ICD-10-PCS; principal; 2024-12-07)
PROC: 3E033NZ Introduction of Analgesics, Hypnotics, Sedatives into Peripheral Vein, Percutaneous Approach (ICD-10-PCS; 2024-12-07)
DX: M79.10 Myalgia, unspecified site (principal); M25.531 Pain in right wrist; E87.6 Hypokalemia; R53.83 Other fatigue; J44.9 Chronic obstructive pulmonary disease, unspecified; I27.20 Pulmonary hypertension, unspecified; Z86.711 Personal history of pulmonary embolism; Z79.01 Long term (current) use of anticoagulants; G43.909 Migraine, unspecified, not intractable, without status migrainosus; Y92.003 Bedroom of unspecified non-institutional (private) residence as the place of occurrence of the external cause; W18.39XA Other fall on same level, initial encounter; Y93.89 Activity, other specified; Z88.0 Allergy status to penicillin; Z88.8 Allergy status to other drugs, medicaments and biological substances; D64.9 Anemia, unspecified; S09.90XA Unspecified injury of head, initial encounter
CPT/HCPCS: 36415; 70450-TC; 70486-TC; 71045-TC-FY; 72125-TC; 73090-TC-RT-FY; 73110-TC-RT-FY; 80053; 81003; 83735; 84100; 84439; 84443; 84484; 84550; 85025; 85610; 85730; 87086; 87637-QW; 93005; 93010; 96374; 96375; 97116-GP; 97161-GP; 99285-25; G0378